=== PATIENT | female | born 1940 | race Caucasian/White ===

== ENCOUNTER 2016-06-22 10:21 | Outpatient (CLI) | payer OTHER ==
[~2016-06-22] VITALS: Ht 154.9 cm; Wt 63.2 kg
[~2016-06-22 10:21] MED LIST: AMLO-147 PO; OMEP40CA6 PO
[2016-06-22 10:37] VITALS: BP 188/86; PULSE 79; RESP 18; Ht 154.9 cm; Wt 63.2 kg
--- NOTE | 2016-06-22 11:06 | PN ---
Date/Time of Note Date/Time of Note DATE: 06/22/16 TIME: 10:59 Assessment/Plan Assessment/Plan Assessment/Plan [facility] Progress Note Date of Service: 06/22/16 Today's Impression & Plan: Doing well without any major changes to her symptoms. Would like to have the operation after coming back from her trip to [place] in August, which would be ok given her clinical picture. I explained the operation and consented the patient for it. The patient and family appeared to understand and agreed with the plans. With above assessment, I have recommended the followin. Abd hernia repair after patient returns back from her trip 2. Will set up quick pre-op visit and surgery to follow afterwards Thank you again for allowing us to participate in the care of this very pleasant lady and her wonderful family. If there are any questions, please feel free to call me at [phone]. TOTAL VISIT TIME: 45 minutes of which more than half was spent in [id number] discussion with the patient, discussions with her daughter, as well as coordination of care between multiple physicians and providers. Updated Clinical Summary The patient is a very pleasant 76-year-old lady well known to me from prior encounters in 2013 that were for recurrent colon cancer. She underwent a laparoscopic hand-assisted distal colectomy with splenectomy for idiopathic thrombocytopenic purpura on 11/25/2013 for a final pathology of a T2 N0 M0 with 0/32 lymph node positive disease who presented with bulge in the lower abdominal area concerning for an incisional hernia. S/p abd/pelvis CT showing large 9-10 cm abdominal wall hernia. S/p surveillance colonoscopy May 2016 with benign findings. Comorbidities: 1. History of colon cancer, initially diagnosed in [place] December 2011, status post resection followed by 4 cycles of 5-FU that were completed in July 2012. 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 Status post resection of descending colon in November 2012 followed by treatment with Xeloda. Status post above-mentioned resection in 2013, treated with modified FOLFOX therapy (6 ) x12 cycles with most recent CT negative as of November 2014. 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 2. Idiopathic thrombocytopenic purpura status post splenectomy during colon resection in 2013. 3. Hypertension. 4. Gastroesophageal reflux disease. 5. Prior left lower extremity deep venous thrombosis. 6. Probable history of uterine cancer. 7. Prior hysterectomy and bilateral salpingo-oophorectomy. 8. History of osteoporosis. 9. History of renal stones. 10. Status post 3 colon resections as above, 2011, 2012 and 2013. 11. Status post splenectomy during colon resection in 2013. 12. Status post hysterectomy and bilateral salpingo-oophorectomy. 13. Status post colonoscopy 06/06/16: One 3 mm polyp at hepatic flexure removed ; patent end-end colo-colonic anastomosis, healthy appearing; non-bleeding external hemorrhoids Subjective: No major events or complaints; no abd pain; no n/v/d; no sob or cp; + flatus; + BM and normal; + activity Objective: Vitals: See below Exam: GENERAL: On exam, the patient was sitting in a chair and appeared to be comfortable and in no acute distress. ABDOMEN: Soft, nontender and nondistended. There are no peritoneal signs or guarding. SKIN: Skin appears to be pink and feels warm to touch. NEUROLOGIC: Patient is awake, alert, and follows commands appropriately. Exam/Review of Systems Vital Signs Vitals Vital Signs Date Time Temp Pulse Resp B/P Pulse Ox O2 Delivery O2 Flow Rate FiO2 06/22/16 10:37 98.3 79 18 188/86 94 Room Air ELEAZAR JONES M.D. Jun 22, 2016 11:06
== END 2016-06-22 16:56 | disposition home or self-care (01) ==
LOC: HPC 10:21
PROVIDERS: ATTEND Transplant Surgery
DX: K46.9 Unspecified abdominal hernia without obstruction or gangrene (principal); Z15.89 Genetic susceptibility to other disease; K21.9 Gastro-esophageal reflux disease without esophagitis; Z86.718 Personal history of other venous thrombosis and embolism; Z90.710 Acquired absence of both cervix and uterus; Z90.722 Acquired absence of ovaries, bilateral; Z90.79 Acquired absence of other genital organ(s); M81.0 Age-related osteoporosis without current pathological fracture; Z87.442 Personal history of urinary calculi; Z90.81 Acquired absence of spleen; K64.4 Residual hemorrhoidal skin tags; D69.3 Immune thrombocytopenic purpura; Z85.038 Personal history of other malignant neoplasm of large intestine; Z90.49 Acquired absence of other specified parts of digestive tract; Z92.21 Personal history of antineoplastic chemotherapy
CPT/HCPCS: G0463

== ENCOUNTER → 2016-11-23 | Outpatient (CLI) | payer OTHER ==
[~2016-11-23] VITALS: Ht 154.9 cm; Wt 62.3 kg
[2016-11-23 10:07] VITALS: BP 186/79; PULSE 68; RESP 18; Ht 154.9 cm; Wt 62.3 kg
--- NOTE | 2016-11-23 11:02 | PN ---
Date/Time of Note Date/Time of Note DATE: 11/23/16 TIME: 10:42 Assessment/Plan Assessment/Plan Assessment/Plan [facility] Progress Note Date of Service: 11/23/16 Today's Impression & Plan: Doing well without any major changes to her symptoms and no issues during her trip to [place] in August. Ok to proceed with hernia repair. Given significant history of colon and other malignancies in the family, and the fact that her daughter had to undergo proctocolectomy (new information for me today), genetic counselling is indicated. I explained the operation and consented the patient for it. The patient and family appeared to understand and agreed with the plans. With above assessment, I have recommended the followin. CT abd/pelvis IV and oral contrast 2. Schedule for abdominal hernia repair 3. Referral to genetic counselor Thank you again for allowing us to participate in the care of this very pleasant lady and her wonderful family. If there are any questions, please feel free to call me at [phone]. TOTAL VISIT TIME: 45 minutes of which more than half was spent in [id number] discussion with the patient, discussions with her daughter, as well as coordination of care between multiple physicians and providers. Updated Clinical Summary The patient is a very pleasant 76-year-old lady well known to me from prior encounters in 2013 that were for recurrent colon cancer. She underwent a laparoscopic hand-assisted distal colectomy with splenectomy for idiopathic thrombocytopenic purpura on 11/25/2013 for a final pathology of a T2 N0 M0 with 0/32 lymph node positive disease who presented with bulge in the lower abdominal area concerning for an incisional hernia. S/p abd/pelvis CT showing large 9-10 cm abdominal wall hernia. S/p surveillance colonoscopy May 2016 with benign findings. Comorbidities: 1. History of colon cancer, initially diagnosed in [place] December 2011, status post resection followed by 4 cycles of 5-FU that were completed in July 2012. 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 Status post resection of descending colon in November 2012 followed by treatment with Xeloda. Status post above-mentioned resection in 2013, treated with modified FOLFOX therapy (6 ) x12 cycles with most recent CT negative as of November 2014. 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 2. Idiopathic thrombocytopenic purpura status post splenectomy during colon resection in 2013. 3. Hypertension. 4. Gastroesophageal reflux disease. 5. Prior left lower extremity deep venous thrombosis. 6. Probable history of uterine cancer. 7. Prior hysterectomy and bilateral salpingo-oophorectomy. 8. History of osteoporosis. 9. History of renal stones. 10. Status post 3 colon resections as above, 2011, 2012 and 2013. 11. Status post splenectomy during colon resection in 2013. 12. Status post hysterectomy and bilateral salpingo-oophorectomy. 13. Status post colonoscopy 06/06/16: One 3 mm polyp at hepatic flexure removed ; patent end-end colo-colonic anastomosis, healthy appearing; non-bleeding external hemorrhoids 14. Significant history of colon and other malignancies in the family; patient' s daughter had to undergo proctocolectomy (info came to light for me 11/23/16 during office visit) Subjective: No major events or complaints; no abd pain; no n/v/d; no sob or cp; + flatus; + BM and normal; + activity Objective: Vitals: See below Exam: GENERAL: On exam, the patient was sitting in a chair and appeared to be comfortable and in no acute distress. ABDOMEN: Soft, nontender and nondistended. There are no peritoneal signs or guarding. Lower midline 10-15 cm defect with bowel inside, not incarcerated and easily reduceable with normal overlying skin and non-tender. SKIN: Skin appears to be pink and feels warm to touch. NEUROLOGIC: Patient is awake, alert, and follows commands appropriately. Exam/Review of Systems Vital Signs Vitals Vital Signs Date Time Temp Pulse Resp B/P Pulse Ox O2 Delivery O2 Flow Rate FiO2 11/23/16 10:07 98.5 68 18 186/79 95 Room Air ELEAZAR JONES M.D. Nov 23, 2016 10:52
== END | disposition home or self-care (01) ==
LOC: HPC 09:57
PROVIDERS: ATTEND Transplant Surgery
DX: R10.30 Lower abdominal pain, unspecified (principal); D69.3 Immune thrombocytopenic purpura; I10 Essential (primary) hypertension; K21.9 Gastro-esophageal reflux disease without esophagitis; M81.0 Age-related osteoporosis without current pathological fracture; Z85.038 Personal history of other malignant neoplasm of large intestine; Z86.718 Personal history of other venous thrombosis and embolism; Z90.710 Acquired absence of both cervix and uterus; Z87.442 Personal history of urinary calculi; Z90.722 Acquired absence of ovaries, bilateral

== ENCOUNTER 2016-12-14 10:37 | Outpatient (CLI) | payer OTHER ==
[~2016-12-14] VITALS: Ht 154.9 cm; Wt 62.3 kg
[2016-12-14 10:52] VITALS: Ht 154.9 cm; Wt 62.3 kg
[2016-12-14 10:53] VITALS: BP 181/84; PULSE 74; RESP 18
--- NOTE | 2016-12-14 11:21 | PN ---
Date/Time of Note Date/Time of Note DATE: 12/14/16 TIME: 11:13 Assessment/Plan Assessment/Plan Assessment/Plan [facility] Progress Note Date of Service: 12/14/16 Today's Impression & Plan: Overall stable and doing well without any major changes to her symptoms since last visit. CT scan dated 12/05/2016 showed presence of previously known large midline infraumbilical incisional hernia containing small bowel and no new findings. No contraindications for surgical repair as desired by patient and family. Ok to proceed with hernia repair with mesh. I again explained the operation and consented the patient for it. I also specifically reviewed the higher than normal risk of hernia recurrence given the fact that this would be the fourth time this area is accessed surgically. The patient and family appeared to understand and agreed with the plans. Please note that genetic counseling has not occurred; but this is not necessary to perform this operation. I again stressed the importance of patient and family having formal genetic counseling with the patient and her son. They appeared to understand and agreed. With above assessment, I have recommended the followin. Preoperative history and physical 2. Schedule for abdominal hernia repair 2. Referral to genetic counselor Thank you again for allowing us to participate in the care of this very pleasant lady and her wonderful family. If there are any questions, please feel free to call me at [phone]. Nature of presenting problem: Moderate risk Complexity of decision making: Moderate complexity Updated Clinical Summary The patient is a very pleasant 76-year-old lady well known to me from prior encounters in 2013 that were for recurrent colon cancer. She underwent a laparoscopic hand-assisted distal colectomy with splenectomy for idiopathic thrombocytopenic purpura on 11/25/2013 for a final pathology of a T2 N0 M0 with 0/32 lymph node positive disease who presented with bulge in the lower abdominal area concerning for an incisional hernia. S/p abd/pelvis CT showing large 9-10 cm abdominal wall hernia. S/p surveillance colonoscopy May [address] scan dated 12/05/2016 showed presence of previously known large midline infraumbilical incisional hernia containing small bowel and no new findings. Comorbidities: 1. History of colon cancer, initially diagnosed in [place] December 2011, status post resection followed by 4 cycles of 5-FU that were completed in July 2012. 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 Status post resection of descending colon in November 2012 followed by treatment with Xeloda. Status post above-mentioned resection in 2013, treated with modified FOLFOX therapy (6 ) x12 cycles with most recent CT negative as of November 2014. 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 CT scan dated 12/05/2016 showed presence of previously known large midline infraumbilical incisional hernia containing small bowel and no new findings. 2. Idiopathic thrombocytopenic purpura status post splenectomy during colon resection in 2013. 3. Hypertension. 4. Gastroesophageal reflux disease. 5. Prior left lower extremity deep venous thrombosis. 6. Probable history of uterine cancer. 7. Prior hysterectomy and bilateral salpingo-oophorectomy. 8. History of osteoporosis. 9. History of renal stones. 10. Status post 3 colon resections as above, 2011, 2012 and 2013. 11. Status post splenectomy during colon resection in 2013. 12. Status post hysterectomy and bilateral salpingo-oophorectomy. 13. Status post colonoscopy 06/06/16: One 3 mm polyp at hepatic flexure removed ; patent end-end colo-colonic anastomosis, healthy appearing; non-bleeding external hemorrhoids 14. Significant history of colon and other malignancies in the family; patient' s daughter had to undergo proctocolectomy (info came to light for me 11/23/16 during office visit) Subjective: No major events or complaints; no abd pain; no n/v/d; no sob or cp; + flatus; + BM and normal; + activity Objective: Vitals: See below Exam: GENERAL: On exam, the patient was sitting in a chair and appeared to be comfortable and in no acute distress. ABDOMEN: Soft, nontender and nondistended. There are no peritoneal signs or guarding. Lower midline 10-15 cm defect with bowel inside, not incarcerated and easily reduceable with normal overlying skin and non-tender. SKIN: Skin appears to be pink and feels warm to touch. NEUROLOGIC: Patient is awake, alert, and follows commands appropriately. Exam/Review of Systems Vital Signs Vitals Vital Signs Date Time Temp Pulse Resp B/P Pulse Ox O2 Delivery O2 Flow Rate FiO2 12/14/16 10:53 98.3 74 18 181/84 94 Room Air ELEAZAR JONES M.D. Dec 14, 2016 11:21
== END 2016-12-14 16:52 | disposition home or self-care (01) ==
LOC: HPC 10:37
PROVIDERS: ATTEND Transplant Surgery
DX: K43.9 Ventral hernia without obstruction or gangrene (principal); I10 Essential (primary) hypertension; D69.3 Immune thrombocytopenic purpura; K21.9 Gastro-esophageal reflux disease without esophagitis; Z85.038 Personal history of other malignant neoplasm of large intestine; Z90.710 Acquired absence of both cervix and uterus; Z86.718 Personal history of other venous thrombosis and embolism; Z87.442 Personal history of urinary calculi; Z90.81 Acquired absence of spleen
CPT/HCPCS: G0463

== ENCOUNTER 2017-01-05 08:01 | Inpatient (IN) | payer OTHER ==
[~2017-01-05] VITALS: Ht 152.4 cm; Wt 62.0 kg
[2017-01-05] VITALS (28 sets, daily range): BP systolic 116–189; BP diastolic 59–87; PULSE 74–122; RESP 17–22
[2017-01-05] MEDS: D5W-0.45 NACL + KCL 20 MEQ 1,000 ML IV SCH ×4 (06:00→20:12)
[~2017-01-05 08:01] MED LIST changes: +CEFAZOLIN 2 GM/50 ML (PMX) 50 ML IVPB SCH
[2017-01-05] MEDS ORDERED: BUPIVACAINE 0.5%/EPI (SDV) 30 ML INJ ONE (08:22)
[2017-01-05] MEDS ORDERED: AMLO5TAB4 PO (08:27)
[2017-01-05] MEDS ORDERED: PROCHLORPERAZINE 10 MG INJ IV PRN (08:30)
[2017-01-05] MEDS ORDERED: FENTAnyl 50 MCG/ML VIAL IV PRN (08:30)
[2017-01-05] MEDS ORDERED: oxyCODONE 5 MG TAB PO PRN (08:30)
[2017-01-05] MEDS ORDERED: MEPERIDINE 25 MG INJ IV PRN (08:30)
[2017-01-05] MEDS ORDERED: ONDANSETRON 4 MG INJ IV PRN (08:30)
[2017-01-05] MEDS ORDERED: LABETALOL HCL 20MG INJ IV PRN (08:30)
[2017-01-05] MEDS ORDERED: HYDROmorphONE (0.2 MG/ML) 10ML SYG IV PRN (08:30)
[2017-01-05] MEDS ORDERED: EPHEDrine SULFATE 50 MG/5 ML SYG IV PRN (08:30)
[2017-01-05] MEDS ORDERED: hydrALAzine 20 MG INJ IV PRN (08:30)
[2017-01-05] MEDS ORDERED: DIPHENHYDRAMINE 50 MG INJ IV PRN (08:30)
--- NOTE | 2017-01-05 09:01 | HPN ---
Date/Time of Note Date/Time of Note DATE: 01/05/17 TIME: 09:01 Interval H&P Admission Note Pt. seen H&P reviewed: No system changes Pt. seen H&P reviewed. No system changes (I attest that I have seen and examined the patient and reviewed the operation in detail, as well as its risks , benefits and alternatives of the operation). I attest that I have seen and examined the patient and reviewed in detail the operation, and its associated risks, benefits and alternative. I have answered all the patient's questions to the best of my ability and the patient wishes to proceed. Please refer to rest of electronic medical record for additional updates. ELEAZAR JONES M.D. Jan 05, 2017 09:01
[2017-01-05] MEDS ORDERED: FENTAnyl 50 MCG/ML VIAL ONE ×2 (09:18→13:30)
[2017-01-05] MEDS ORDERED: LIDOCAINE 2% (SDV) 5 ML INJ ONE (09:18)
[2017-01-05] MEDS ORDERED: MIDAZOLAM 1 MG/ML 2 ML INJ ONE (09:18)
[2017-01-05] MEDS ORDERED: SUCCINYLCHOLINE CHLORIDE 100 MG/5 ML SYG IV ONE (09:18)
[2017-01-05] MEDS ORDERED: PROPOFOL 20 ML ONE (09:18)
[2017-01-05] MEDS ORDERED: EPHEDrine SULFATE 50 MG/5 ML SYG ONE (09:21)
[2017-01-05] MEDS ORDERED: PHENYLephrine (100 MCG/ML) 5ML SYG ONE (09:21)
[2017-01-05] MEDS ORDERED: PHYTONADIONE 2 MG in DEXTROSE 5% 50 ML IVPB ONE (09:30)
[2017-01-05] MEDS ORDERED: ROCURONIUM 50 MG INJ ONE ×2 (09:37→12:50)
[2017-01-05] MEDS ORDERED: ONDANSETRON 4 MG INJ ONE (09:37)
[2017-01-05] MEDS ORDERED: CEFAZOLIN 1 GM INJ ONE (09:37)
[2017-01-05] MEDS ORDERED: METOCLOPRAMIDE 10 MG INJ ONE (09:37)
[2017-01-05] MEDS ORDERED: HYDROmorphONE 2 MG/ML SYG ONE (10:03)
[2017-01-05] MEDS ORDERED: ACETAMINOPHEN 1000MG/100ML IV 100 ML ONE (10:05)
[2017-01-05] MEDS ORDERED: ROPIVACAINE 0.2% 20 ML VIAL ONE (10:07)
[2017-01-05] MEDS ORDERED: SUGAMMADEX SODIUM 200 MG/2 ML VIAL IV ONE (12:05)
--- NOTE | 2017-01-05 15:29 | SIPON ---
Date/Time of Note Date/Time of Note DATE: 01/05/17 TIME: 15:27 Operative Report Preoperative Diagnosis ventral incisional hernia (20x7) Postoperative Diagnosis ventral incisional hernia (20x7) Operation/Procedure Performed 1. Mesh repair ventral incisional hernia (20x7) with mesh with retrorectus dissection on both sides and inlay mesh between abdominal wall layers 2. Abdominoplasty Surgeon see signature line bakery assistant none Anesthesia: general Estimated blood loss: 10 - 50 ml's Transfusion Required none Specimen 1. Hernia sac 2. abdominoplasty specimen Grafts/Implants Mesh Complications none ELEAZAR JONES M.D. Jan 05, 2017 15:29
--- NOTE | 2017-01-05 15:29 | SIPON ---
Date/Time of Note Date/Time of Note DATE: 01/05/17 TIME: 15:27 Operative Report Preoperative Diagnosis ventral incisional hernia (20x7) Postoperative Diagnosis ventral incisional hernia (20x7) Operation/Procedure Performed 1. Mesh repair ventral incisional hernia (20x7) with mesh with retrorectus dissection on both sides and inlay mesh between abdominal wall layers 2. Abdominoplasty Surgeon see signature line certified surgical assistant none Anesthesia: general Estimated blood loss: 10 - 50 ml's Transfusion Required none Specimen 1. Hernia sac 2. abdominoplasty specimen Grafts/Implants Mesh Complications none ELEAZAR JONES M.D. Jan 05, 2017 15:29
--- NOTE | 2017-01-05 15:29 | SIPON ---
Date/Time of Note Date/Time of Note DATE: 01/05/17 TIME: 15:27 Operative Report Preoperative Diagnosis ventral incisional hernia (20x7) Postoperative Diagnosis ventral incisional hernia (20x7) Operation/Procedure Performed 1. Mesh repair ventral incisional hernia (20x7) with mesh with retrorectus dissection on both sides and inlay mesh between abdominal wall layers 2. Abdominoplasty Surgeon see signature line curriculum assistant principal none Anesthesia: general Estimated blood loss: 10 - 50 ml's Transfusion Required none Specimen 1. Hernia sac 2. abdominoplasty specimen Grafts/Implants Mesh Complications none ELEAZAR JONES M.D. Jan 05, 2017 15:29
[2017-01-05] MEDS ORDERED: HYDROmorphONE 0.5 MG/0.5 ML SYG IV PRN (15:30)
[2017-01-05] MEDS ORDERED: HYDROmorphONE 0.2 MG/ML PCA IV SCH (15:30)
[2017-01-05] MEDS ORDERED: HYDROCODONE/APAP (5/325) TAB PO PRN ×2 (15:30)
[2017-01-05] MEDS ORDERED: NA PHOSPHATE/BIPHOS 133 ML ENEMA PR PRN (15:30)
[2017-01-05] MEDS ORDERED: DOCUSATE SODIUM 100 MG CAP PO PRN (15:30)
[2017-01-05] MEDS ORDERED: BISACODYL 10 MG SUPP PR PRN (15:30)
[2017-01-05] MEDS ORDERED: HYDROmorphONE 1 MG/ML SYG IV PRN (15:30)
[2017-01-05] MEDS ORDERED: HYDROmorphONE 0.2 MG/ML PCA ONE (15:47)
--- NOTE | 2017-01-05 18:07 | OPR ---
Date/Time of Note Date/Time of Note DATE: 01/05/17 TIME: 18:06 Operative Report Preoperative Diagnosis n Postoperative Diagnosis n Surgeon see signature line Manager Embalmer Funeral Director n Anesthesia Type: other Estimated Blood Loss: other Transfusion none Specimen n Grafts/Implants see op note Complications none Procedure Description [facility] IN[facility]IENT [facility]PER[facility]IVE NOTE PLACE OF SERVICE: [facility] DATE OF SURGERY: 01/05/2017 PREOPERATIVE DIAGNOSIS: 1. Ventral incisional hernia 2. History of colon cancer, initially diagnosed in [place] December 2011, status post resection followed by 4 cycles of 5-FU that were completed in July 2012. 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 Status post resection of descending colon in November 2012 followed by treatment with Xeloda. Status post above-mentioned resection in 2013, treated with modified FOLFOX therapy (6 ) x12 cycles with most recent CT negative as of November 2014. 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 CT scan dated 12/05/2016 showed presence of previously known large midline infraumbilical incisional hernia containing small bowel and no new findings. 3. Idiopathic thrombocytopenic purpura status post splenectomy during colon resection in 2013. 4. Gastroesophageal reflux disease. 5. Prior left lower extremity deep venous thrombosis. 6. Probable history of uterine cancer. 7. Prior hysterectomy and bilateral salpingo-oophorectomy. 8. History of osteoporosis. 9. History of renal stones. 10. Status post 3 colon resections as above, 2011, 2012 and 2013. 11. Status post splenectomy during colon resection in 2013. 12. Status post hysterectomy and bilateral salpingo-oophorectomy. 13. Status post colonoscopy 06/06/16: One 3 mm polyp at hepatic flexure removed ; patent end-end colo-colonic anastomosis, healthy appearing; non-bleeding external hemorrhoids 14. Significant history of colon and other malignancies in the family; patient' s daughter had to undergo proctocolectomy (info came to light for tx 11/23/16 during office visit) 15. Hypertension. POSTOPERATIVE DIAGNOSIS: 1. Ventral incisional hernia 2. History of colon cancer, initially diagnosed in [place] December 2011, status post resection followed by 4 cycles of 5-FU that were completed in July 2012. 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 Status post resection of descending colon in November 2012 followed by treatment with Xeloda. Status post above-mentioned resection in 2013, treated with modified FOLFOX therapy (6 ) x12 cycles with most recent CT negative as of November 2014. 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 CT scan dated 12/05/2016 showed presence of previously known large midline infraumbilical incisional hernia containing small bowel and no new findings. 3. Idiopathic thrombocytopenic purpura status post splenectomy during colon resection in 2013. 4. Gastroesophageal reflux disease. 5. Prior left lower extremity deep venous thrombosis. 6. Probable history of uterine cancer. 7. Prior hysterectomy and bilateral salpingo-oophorectomy. 8. History of osteoporosis. 9. History of renal stones. 10. Status post 3 colon resections as above, 2011, 2012 and 2013. 11. Status post splenectomy during colon resection in 2013. 12. Status post hysterectomy and bilateral salpingo-oophorectomy. 13. Status post colonoscopy 06/06/16: One 3 mm polyp at hepatic flexure removed ; patent end-end colo-colonic anastomosis, healthy appearing; non-bleeding external hemorrhoids 14. Significant history of colon and other malignancies in the family; patient' s daughter had to undergo proctocolectomy (info came to light for me 11/23/16 during office visit) 15. Hypertension. OPERATION: 1. Complex repair of ventral incisional hernia with preperitoneal mesh ( composite Ventralight ST 20.3 cm x 25.4cm cut to size; also used Acell 6 layer 7 x 5 cm mesh cut to size to reapproximate the upper midline posterior rectus sheath over exposed bowel) 2. Right rectus myocutaneous flap (CPT 31581) 3. Left rectus myocutaneous flap (CPT 66196) 4. Implantation of mesh (CPT 72000) 5. Lysis of adhesions (60 mi 6. Nutes) 6. Therapeutic injection of subcutaneous Marcaine (CPT 52813) SURGEON: Eleazar Jones M.D. ESCORT CAR DRIVER: None ANESTHESIA: General endotracheal tube anesthesia ANESTHESIOLOGIST: Alondra Bennett M.D. BRIEF SUMMARY: An otherwise uncomplicated but challenging and complex ventral incisional hernia repair was performed with findings of defect of approximately 20 cm x 7 cm repaired with mesh. Updated Clinical Summary The patient is a very pleasant 76-year-old lady well known to me from prior encounters in 2013 that were for recurrent colon cancer. She underwent a laparoscopic hand-assisted distal colectomy with splenectomy for idiopathic thrombocytopenic purpura on 11/25/2013 for a final pathology of a T2 N0 M0 with 0/32 lymph node positive disease who presented with bulge in the lower abdominal area concerning for an incisional hernia. S/p abd/pelvis CT showing large 9-10 cm abdominal wall hernia. S/p surveillance colonoscopy May [address] scan dated 12/05/2016 showed presence of previously known large midline infraumbilical incisional hernia containing small bowel and no new findings. Comorbidities: 1. History of colon cancer, initially diagnosed in [place] December 2011, status post resection followed by 4 cycles of 5-FU that were completed in July 2012. 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 Status post resection of descending colon in November 2012 followed by treatment with Xeloda. Status post above-mentioned resection in 2013, treated with modified FOLFOX therapy (6 ) x12 cycles with most recent CT negative as of November 2014. 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 CT scan dated 12/05/2016 showed presence of previously known large midline infraumbilical incisional hernia containing small bowel and no new findings. 2. Idiopathic thrombocytopenic purpura status post splenectomy during colon resection in 2013. 3. Hypertension. 4. Gastroesophageal reflux disease. 5. Prior left lower extremity deep venous thrombosis. 6. Probable history of uterine cancer. 7. Prior hysterectomy and bilateral salpingo-oophorectomy. 8. History of osteoporosis. 9. History of renal stones. 10. Status post 3 colon resections as above, 2011, 2012 and 2013. 11. Status post splenectomy during colon resection in 2013. 12. Status post hysterectomy and bilateral salpingo-oophorectomy. 13. Status post colonoscopy 06/06/16: One 3 mm polyp at hepatic flexure removed ; patent end-end colo-colonic anastomosis, healthy appearing; non-bleeding external hemorrhoids 14. Significant history of colon and other malignancies in the family; patient' s daughter had to undergo proctocolectomy (info came to light for me 11/23/16 during office visit) BRIEF HISTORY: The patient is a very pleasant 76-year-old lady with above- mentioned history whom we were kindly asked consult regarding surgical management of her recurrent ventral incisional hernia. Note that I have known the patient since 2013 and had performed above-mentioned colectomy and splenectomy in 2014. Patient had been having symptomatic incisional ventral hernia for a long time and at this point wished surgical repair. I met with the patient and family and counseled them regarding the possible options of treatment, and I strongly suggested a open ventral incisional hernia repair, most likely with mesh. We reviewed the operation in detail as well as the risks , benefits, alternatives, and expected outcomes of this operation. After careful consideration of all the risks, benefits, and alternatives, the patient and family appeared to understand those risks and wished to proceed with surgery. For a detailed report of my consultation with patient and family, please refer to my separate consultation note. STATEMENT OF THE INFORMED CONSENT: The patient and family appeared to understand the risks of the operation to include, but not be limited to risk of postoperative pain and scar tissue, possible infection or bleeding requiring other interventions such as opening the wound, placement of drainage catheters, or other operative interventions; possible injury to surrounding to structures including bowel, bladder, bile duct, or blood vessels, or solid organs such as liver, kidney, or pancreas requiring other interventions or procedures; possible leakage of bowel from anastomotic sites or suture lines more specifically regarding the mesh, mesh infection causing significant increase in morbidity and mortality and requiring multiple interventions including but not limited to, placement of drainage catheters, imaging studies, as well as operative interventions; possible other source of sepsis such as urinary tract infections or pneumonias, or other sources of potentially life threatening problems such as deep venous thrombus formation causing pulmonary embolism, myocardial arrhythmias and infarctions, and even . We also specifically reviewed the higher than normal recurrence rate of hernia given the complexity of the hernia that we saw on the preoperative images. After careful consideration of all their options, the patient and family appeared to understand and wished to proceed with surgery. DESCRIPTION OF PROCEDURE: After obtaining informed consent, the patient was brought into the operating room and was placed in a normal supine position, where successful general endotracheal tube anesthesia was performed. Intravenous access was already in place and intravenous antimicrobials had been appropriately chosen and dosed prior to the operation. The patient's abdominal skin was prepped and draped from the nipple line down to the level of the upper thighs in the usual sterile fashion. We then called a surgical time-out where the patient's identification, date of , nature of the operation, allergies , presence of intravenous antimicrobials, presence of needed equipment, and any other concerns were reviewed and agreed upon by all members of the operating room team. We then started the operation by placing a skin incision along the previous midline laparotomy scar using scalpel to go through the skin and then cautery to go through the subcutaneous fat. The subcutaneous fat was very thin in the lower midline and there was bowel right underneath it. There was no injury to underlying bowel. We entered the hernia sac easily and then extended our incision eventually to the full extent of the previous midline incision (see below). Initially, the incision was approximately 20 cm in length. We could see that there was a large defect corresponding to the preoperative images and some loss of domain from the long-standing presence of this hernia. Hernia also had at least 2 smaller sacs in the most caudal portion of the subcutaneous fat which we also saw on the preoperative images. Underlying bowel appeared to be viable. We then started extensive adhesio lysis ( approximately 60 minutes prior to myocutaneous flap development and overall 2-3 hours extra in time spent due to extent of the size of this hernia) and took down the sac from the subcutaneous fat down to the edge of fascia and then removed the excess sac and send it to pathology eventually for permanent sections. We then started developing the right myocutaneous flap by taking the posterior rectus sheath and it from the overlying muscle using combination of judicious cautery as well as blunt dissection. We ensured preservation of the vessels that were on the lateral edge of the rectus sheath going into the rectus muscle. We continue to development of the myocutaneous flap up cephalad until we reached the apex of our incision which was at the umbilicus. We could feel that the defect extended further cephalad including the umbilical area and therefore we extended our incision using scalpel and then cautery to accommodate the large defect size that we could feel. There was a small bridge of preserved fascia above the umbilicus and then another 2 cm fascial defect cephalad to this area was found. After careful consideration of all the options , I decided to connect this new defect site to the larger defect site by going through the bridge of fascia that was present (only about 8 mm in total length) using cautery. With this maneuver, we had achieved complete exposure to the full extent of the hernia defect site. This is also the reason why the incision was extended to the full extent of the previous scar. We then switched sides and I developed the myocutaneous flap on the left in a similar fashion. Once we developed enough space to be able to fit the mesh, I started approximating the posterior sheet which was essentially peritoneum below the arcuate line using running 3-0 Vicryl suture cephalad. We also attempted to bring the 2 edges of the posterior rectus sheath from the most superior aspect of the defect site together using another 3-0 Vicryl suture. Due to the loss of domain, this was not possible given the distance between the 2 edges and the tension that would essentially because of ribs in the posterior sheet. I did further dissection on both sides and also did undermining of the subcutaneous fat over the anterior rectus sheath in an attempt to free up more abdominal wall fascia in order to attempt a tension-free anastomosis. We were able to reapproximate the posterior sheet with a central defect which we covered using a 6 layer Acell sutured onto the edges of the posterior sheet with 3-0 PDS suture in a running fashion along the edges on the inside and then interrupted 3-0 PDS suture tacking the outer edges onto the posterior sheet for reinforcement. Using this technique, we were able to completely cover the bowel away from the surface of the composite mesh that we were using for layer closure. At this point I washed the cavity with copious amounts of normal saline and ensured adequate hemostasis prior to positioning a Ventralight ST 20.3 cm x 25.4cm cut to size (only on the width and not on the length side) into the cavity. Mesh laid nicely and we secured the edges superiorly and inferiorly as well as on the sides with 3-0 PDS suture. Mesh laid nicely and covered the entire defect site with at least 2-3 cm on each apex (cephalad and caudad) on the posterior sheet and at least 5 or 6 cm on the sides with the anterior sheet closed. Once we ensured adequate placement of the mesh, I reapproximated the anterior sheath edges using interrupted #1 PDS suture in a [id number] fashion. We were able to completely reapproximate the anterior sheath minus a 2 cm area near the apex of the wound on the cephalad side. The 2 edges of the anterior sheath would not come together without tension. For this reason, I used a running 3-0 PDS suture as well as interrupted #1 PDS sutures in a circular fashion to approximate the anterior sheath onto the anterior surface of the mesh. This completed the closure of the anterior sheet over the mesh and the repair appeared to be secure with no tension. We then ensured adequate hemostasis prior to placement of a 7 Cambodian round Devante-Liu drain through a separate stab incision in the left lower quadrant and securing the drain onto the skin using 2-0 nylon suture and laying the tail of the drain along the inferior lateral and superior edges of the wound and then using 3-0 Vicryl suture to bring the inferior edge of the Makenzie's fascia to try to eliminate the potential space. Because of excess abdominal skin, we ended up using scalpel to remove this excess skin and send the specimen as an abdominoplasty specimen to pathology for permanent sections on the caudal portion of the incision (approximately 15 cm of skin removed on each side). We then washed the wounds with copious amounts of normal saline, did an umbilical plasty in order to secure the base of the umbilicus onto the underlying tissue and then reapproximated the skin using skin stapler. Light dressing was then applied. At the end of the operation, both the sponge count and needle count were reportedly correct x2. The patient tolerated the procedure without any reported complications. ESTIMATED BLOOD LOSS: 20 mL BLOOD OR BLOOD PRODUCT TRANSFUSIONS: None to my knowledge. SPECIMENS: 1. Ventral incisional hernia sac 2. Abdominoplasty specimen COMPLICATIONS: None. DISPOSITION: Recovery area. GRAFTS: Composite Ventralight ST 20.3 cm x 25.4cm cut to size; also used Acell 6 layer 7 x 5 cm mesh cut to size to reapproximate the upper midline posterior rectus sheath over exposed bowel Disclaimers: 1. Inadvertent spelling and grammatical errors are likely due to electronic health record (EHR)/dictation software used and do not reflect on the quality of delivered patient care. 2. The electronic timestamp recorded on this note does not necessarily reflect the actual date and time of the visit or the service. 3. Portions of this note may have been created through electronic templates and computer algorithms that might bring in information either from the system or from other physicians and providers. Please note that such information may or may not contain errors, the occurrence of which are outside of my control. In general (but not always) this happens either in the beginning or at the end of the note. The portion of the note that I have created are generally done in 1 continuous block of text, flanked at the beginning and at the end by " ", and entered into one field in the EHR. 4. There may be other unanticipated errors in the note that are outside of my control. I can only attest to the portions of the note that I have created. ELEAZAR JONES M.D. Jan 05, 2017 18:07
[2017-01-06] MEDS: D5W-0.45 NACL + KCL 20 MEQ 1,000 ML IV SCH ×2 (01:21→07:18)
--- NOTE | 2017-01-06 04:51 | CONS ---
Date/Time of Note Date/Time of Note DATE: 01/06/17 TIME: 04:43 Assessment/Plan Assessment/Plan Additional Assessment/Plan ASSESSMENT 76-year-old female with hx of HTN, colon cancer s/p surgery and chemo with recurrent ventral incisional hernia, hx of ITP s/p splenomegaly who is admitted s/p repair of ventral incisional hernia and lysis of admission(01/05/17). PLAN pain mgmt advance diet as tolerated Hold home BP meds with PRN anti-hypertensives for now. DVT ppx per surgery check am lab Consultation Date/Type/Reason Admit Date/Time Jan 05, 2017 at 08:01 Hx of Present Illness This is a 76-year-old female with hx of HTN, colon cancer s/p surgery and chemo with recurrent ventral incisional hernia, hx of ITP s/p splenomegaly who is admitted s/p repair of ventral incisional hernia and lysis of admission(01/05/17 ). Consult is placed for medical mgmt. Currently, pt denies CP, SOB, fever/ chills, N/V. She does have intermittent post-op abd pain. Past Medical History Medical History: hypertension, other (colon ca, ITP) Past Surgical History Past Surgical Hx: bowel resection Social History Alcohol Use: none Smoking Status: Never smoker Drug Use: none Exam/Review of Systems Vital Signs Vitals Vital Signs Date Time Temp Pulse Resp B/P Pulse Ox O2 Delivery O2 Flow Rate FiO2 01/06/17 01:00 17 01/05/17 23:57 98.9 118/59 93 01/05/17 23:00 3.0 01/05/17 20:40 Nasal Cannula 01/05/17 19:51 86 Intake and Output 01/05/17 01/05/17 01/06/17 15:00 23:00 07:00 Intake Total 1150 ml Output Total 555 ml 75 ml Balance 595 ml -75 ml Exam Constitutional: other (sleepy, but arousable. no acute distress) Head: atraumatic, normocephalic Eyes: PERRL Respiratory: clear to auscultation, normal air movement Cardiovascular: nl pulses, regular rate and rhythm Gastrointestinal: soft, surgical scars, tender Extremities: normal pulses Results Result Diagram: 01/05/17 0839 Results 24 hrs Laboratory Tests Test 01/05/17 08:39 Prothrombin Time 13.7 Prothrombin Time Ratio 1.1 INR International Normalized Ratio 1.05 Sodium Level 146 H Potassium Level 4.1 Chloride Level 105 Carbon Dioxide Level 29 Anion Gap 16 Blood Urea Nitrogen 17 Creatinine 0.66 Glucose Level 101 Calcium Level 9.1 Medications Medications Current Medications Potassium Chloride/Dextrose/ Sod Cl (D5-1/2ns + KCl 20 Meq) 1,000 ml @ 100 mls/ hr Q10H IV Last administered on 01/05/17 20:12; Admin Dose 100 MLS/HR; Start 01/05/17 at 15:21 Acetaminophen/ Hydrocodone Bitart ([place]lee (5/325)) 1 tab Q4H PRN PO PAIN LEVEL 4 -7; Start 01/05/17 at 15:30; Status Future Hold Acetaminophen/ Hydrocodone Bitart (Oklee (5/325)) 2 tab Q4H PRN PO PAIN LEVEL 7 -10; Start 01/05/17 at 15:30; Status Future Hold Hydromorphone HCl (Dilaudid) 0.5 mg Q2H PRN IV PAIN; Start 01/05/17 at 15:30 Hydromorphone HCl (Dilaudid) 1 mg Q2H PRN IV PAIN; Start 01/05/17 at 15:30 Docusate Sodium (Colace) 100 mg BID PRN PO CONSTIPATION; Start 01/05/17 at 15: 30 Bisacodyl (Dulcolax Supp) 10 mg BID PRN [place] CONSTIPATION; Start 01/05/17 at 15: 30 Sodium Biphosphate/ Sodium Phosphate (Fleet Enema) 133 ml BID PRN [place] CONSTIPATION; Start 01/05/17 at 15:30 Famotidine (Pepcid Iv) 20 mg DAILY IV ; Start 01/06/17 at 09:00 Enoxaparin Sodium (Lovenox) 40 mg DAILY SC ; Start 01/06/17 at 09:00 Hydromorphone HCl (Dilaudid HEALTH AND SAFETY INSPECTOR) 0 MG/HR CONTINUOUS RATE .1... Q4PCA IV Last administered on 01/05/17 15:51; Admin Dose 6 MG; Start 01/05/17 at 15:30 Hydralazine HCl (Apresoline) 10 mg Q4H PRN IV SBP > 160; Start 01/06/17 at 05: 00 JC NEWBERRY MD Jan 06, 2017 04:51
--- NOTE | 2017-01-06 04:51 | CONS ---
Date/Time of Note Date/Time of Note DATE: 01/06/17 TIME: 04:43 Assessment/Plan Assessment/Plan Additional Assessment/Plan ASSESSMENT 76-year-old female with hx of HTN, colon cancer s/p surgery and chemo with recurrent ventral incisional hernia, hx of ITP s/p splenomegaly who is admitted s/p repair of ventral incisional hernia and lysis of admission(01/05/17). PLAN pain mgmt advance diet as tolerated Hold home BP meds with PRN anti-hypertensives for now. DVT ppx per surgery check am lab Consultation Date/Type/Reason Admit Date/Time Jan 05, 2017 at 08:01 Hx of Present Illness This is a 76-year-old female with hx of HTN, colon cancer s/p surgery and chemo with recurrent ventral incisional hernia, hx of ITP s/p splenomegaly who is admitted s/p repair of ventral incisional hernia and lysis of admission(01/05/17 ). Consult is placed for medical mgmt. Currently, pt denies CP, SOB, fever/ chills, N/V. She does have intermittent post-op abd pain. Past Medical History Medical History: hypertension, other (colon ca, ITP) Past Surgical History Past Surgical Hx: bowel resection Social History Alcohol Use: none Smoking Status: Never smoker Drug Use: none Exam/Review of Systems Vital Signs Vitals Vital Signs Date Time Temp Pulse Resp B/P Pulse Ox O2 Delivery O2 Flow Rate FiO2 01/06/17 01:00 17 01/05/17 23:57 98.9 118/59 93 01/05/17 23:00 3.0 01/05/17 20:40 Nasal Cannula 01/05/17 19:51 86 Intake and Output 01/05/17 01/05/17 01/06/17 15:00 23:00 07:00 Intake Total 1150 ml Output Total 555 ml 75 ml Balance 595 ml -75 ml Exam Constitutional: other (sleepy, but arousable. no acute distress) Head: atraumatic, normocephalic Eyes: PERRL Respiratory: clear to auscultation, normal air movement Cardiovascular: nl pulses, regular rate and rhythm Gastrointestinal: soft, surgical scars, tender Extremities: normal pulses Results Result Diagram: 01/05/17 0839 Results 24 hrs Laboratory Tests Test 01/05/17 08:39 Prothrombin Time 13.7 Prothrombin Time Ratio 1.1 INR International Normalized Ratio 1.05 Sodium Level 146 H Potassium Level 4.1 Chloride Level 105 Carbon Dioxide Level 29 Anion Gap 16 Blood Urea Nitrogen 17 Creatinine 0.66 Glucose Level 101 Calcium Level 9.1 Medications Medications Current Medications Potassium Chloride/Dextrose/ Sod Cl (D5-1/2ns + KCl 20 Meq) 1,000 ml @ 100 mls/ hr Q10H IV Last administered on 01/05/17 20:12; Admin Dose 100 MLS/HR; Start 01/05/17 at 15:21 Acetaminophen/ Hydrocodone Bitart ([place] (5/325)) 1 tab Q4H PRN PO PAIN LEVEL 4 -7; Start 01/05/17 at 15:30; Status Future Hold Acetaminophen/ Hydrocodone Bitart ([place]flow (5/325)) 2 tab Q4H PRN PO PAIN LEVEL 7 -10; Start 01/05/17 at 15:30; Status Future Hold Hydromorphone HCl (Dilaudid) 0.5 mg Q2H PRN IV PAIN; Start 01/05/17 at 15:30 Hydromorphone HCl (Dilaudid) 1 mg Q2H PRN IV PAIN; Start 01/05/17 at 15:30 Docusate Sodium (Colace) 100 mg BID PRN PO CONSTIPATION; Start 01/05/17 at 15: 30 Bisacodyl (Dulcolax Supp) 10 mg BID PRN [place] CONSTIPATION; Start 01/05/17 at 15: 30 Sodium Biphosphate/ Sodium Phosphate (Fleet Enema) 133 ml BID PRN [place] CONSTIPATION; Start 01/05/17 at 15:30 Famotidine (Pepcid Iv) 20 mg DAILY IV ; Start 01/06/17 at 09:00 Enoxaparin Sodium (Lovenox) 40 mg DAILY SC ; Start 01/06/17 at 09:00 Hydromorphone HCl (Dilaudid ACLS NURSE) 0 MG/HR CONTINUOUS RATE .1... Q4PCA IV Last administered on 01/05/17 15:51; Admin Dose 6 MG; Start 01/05/17 at 15:30 Hydralazine HCl (Apresoline) 10 mg Q4H PRN IV SBP > 160; Start 01/06/17 at 05: 00 JC NEWBERRY MD Jan 06, 2017 04:51
--- NOTE | 2017-01-06 04:51 | CONS ---
Date/Time of Note Date/Time of Note DATE: 01/06/17 TIME: 04:43 Assessment/Plan Assessment/Plan Additional Assessment/Plan ASSESSMENT 76-year-old female with hx of HTN, colon cancer s/p surgery and chemo with recurrent ventral incisional hernia, hx of ITP s/p splenomegaly who is admitted s/p repair of ventral incisional hernia and lysis of admission(01/05/17). PLAN pain mgmt advance diet as tolerated Hold home BP meds with PRN anti-hypertensives for now. DVT ppx per surgery check am lab Consultation Date/Type/Reason Admit Date/Time Jan 05, 2017 at 08:01 Hx of Present Illness This is a 76-year-old female with hx of HTN, colon cancer s/p surgery and chemo with recurrent ventral incisional hernia, hx of ITP s/p splenomegaly who is admitted s/p repair of ventral incisional hernia and lysis of admission(01/05/17 ). Consult is placed for medical mgmt. Currently, pt denies CP, SOB, fever/ chills, N/V. She does have intermittent post-op abd pain. Past Medical History Medical History: hypertension, other (colon ca, ITP) Past Surgical History Past Surgical Hx: bowel resection Social History Alcohol Use: none Smoking Status: Never smoker Drug Use: none Exam/Review of Systems Vital Signs Vitals Vital Signs Date Time Temp Pulse Resp B/P Pulse Ox O2 Delivery O2 Flow Rate FiO2 01/06/17 01:00 17 01/05/17 23:57 98.9 118/59 93 01/05/17 23:00 3.0 01/05/17 20:40 Nasal Cannula 01/05/17 19:51 86 Intake and Output 01/05/17 01/05/17 01/06/17 15:00 23:00 07:00 Intake Total 1150 ml Output Total 555 ml 75 ml Balance 595 ml -75 ml Exam Constitutional: other (sleepy, but arousable. no acute distress) Head: atraumatic, normocephalic Eyes: PERRL Respiratory: clear to auscultation, normal air movement Cardiovascular: nl pulses, regular rate and rhythm Gastrointestinal: soft, surgical scars, tender Extremities: normal pulses Results Result Diagram: 01/05/17 0839 Results 24 hrs Laboratory Tests Test 01/05/17 08:39 Prothrombin Time 13.7 Prothrombin Time Ratio 1.1 INR International Normalized Ratio 1.05 Sodium Level 146 H Potassium Level 4.1 Chloride Level 105 Carbon Dioxide Level 29 Anion Gap 16 Blood Urea Nitrogen 17 Creatinine 0.66 Glucose Level 101 Calcium Level 9.1 Medications Medications Current Medications Potassium Chloride/Dextrose/ Sod Cl (D5-1/2ns + KCl 20 Meq) 1,000 ml @ 100 mls/ hr Q10H IV Last administered on 01/05/17 20:12; Admin Dose 100 MLS/HR; Start 01/05/17 at 15:21 Acetaminophen/ Hydrocodone Bitart ([place] (5/325)) 1 tab Q4H PRN PO PAIN LEVEL 4 -7; Start 01/05/17 at 15:30; Status Future Hold Acetaminophen/ Hydrocodone Bitart ([place] (5/325)) 2 tab Q4H PRN PO PAIN LEVEL 7 -10; Start 01/05/17 at 15:30; Status Future Hold Hydromorphone HCl (Dilaudid) 0.5 mg Q2H PRN IV PAIN; Start 01/05/17 at 15:30 Hydromorphone HCl (Dilaudid) 1 mg Q2H PRN IV PAIN; Start 01/05/17 at 15:30 Docusate Sodium (Colace) 100 mg BID PRN PO CONSTIPATION; Start 01/05/17 at 15: 30 Bisacodyl (Dulcolax Supp) 10 mg BID PRN [place] CONSTIPATION; Start 01/05/17 at 15: 30 Sodium Biphosphate/ Sodium Phosphate (Fleet Enema) 133 ml BID PRN [place] CONSTIPATION; Start 01/05/17 at 15:30 Famotidine (Pepcid Iv) 20 mg DAILY IV ; Start 01/06/17 at 09:00 Enoxaparin Sodium (Lovenox) 40 mg DAILY SC ; Start 01/06/17 at 09:00 Hydromorphone HCl (Dilaudid POLISHER NUMERAL) 0 MG/HR CONTINUOUS RATE .1... Q4PCA IV Last administered on 01/05/17 15:51; Admin Dose 6 MG; Start 01/05/17 at 15:30 Hydralazine HCl (Apresoline) 10 mg Q4H PRN IV SBP > 160; Start 01/06/17 at 05: 00 JC NEWBERRY MD Jan 06, 2017 04:51
[2017-01-06] MEDS ORDERED: hydrALAzine 20 MG INJ IV PRN (05:00)
[2017-01-06 07:36] VITALS: BP 123/59; RESP 18
[2017-01-06] MEDS: ENOXAPARIN 40 MG/0.4 ML SYG SC SCH (08:55)
[2017-01-06] MEDS ORDERED: FAMOTIDINE 20 MG INJ IV SCH (09:00)
--- NOTE | 2017-01-06 11:55 | PN ---
Date/Time of Note Date/Time of Note DATE: 01/06/17 TIME: 11:55 Assessment/Plan Lines/Catheters IV Catheter Type (from Nrsg): Peripheral IV Assessment/Plan Assessment/Plan [facility] Progress Note Date of Service: 01/06/2017 Location of Service: [facility] 4th floor Today's Assessment & Plan: Overall stable and doing relatively well. As expected, the most pressing issue is pain control. Abdomen remains benign. No indications of major postoperative complications or wound problems. No indication for acute surgical intervention. Awaiting further return of bowel function. Not ready for discharge home yet. Discussed with patient and answered all questions. No family in the room. Patient appeared to understand and agreed with plans With above assessment, I've recommended the following for today: 1. Keep in-house 2. Transition from VISUAL PRESENTATION MANAGER to oral pain medications 3. Added Toradol to the regimen 4. Increase activity 5. Increase incentive spirometry 6. Teach patient and family drain care since most likely she will will be discharged home with the drain in place 7. Home health set up 8. Possible discharge planning for the next 24-48 hours Thank you again for your great care of this very pleasant patient and wonderful family. If there are any questions, please feel free to call me at [phone]. Nature of presenting problem: High severity Please note that, given the multiple number of diagnoses or management options, the moderate amount and/or complexity of data needed to be reviewed, and moderate to high risk of complications and/or morbidity or mortality, this qualifies as moderate complexity type of decision-making. Disclaimers: 1. Inadvertent spelling and grammatical errors are likely due to electronic health record (EHR)/dictation software used and do not reflect on the quality of delivered patient care. 2. The electronic timestamp recorded on this note does not necessarily reflect the actual date and time of the visit or the service. 3. Portions of this note may have been created through electronic templates and computer algorithms that might bring in information either from the system or from other physicians and providers. Please note that such information may or may not contain errors, the occurrence of which are outside of my control. In general (but not always) this happens either in the beginning or at the end of the note. The portion of the note that I have created are generally done in 1 continuous block of text, flanked at the beginning and at the end by " ", and entered into one field in the EHR. 4. There may be other unanticipated errors in the note that are outside of my control. I can only attest to the portions of the note that I have created. Updated Clinical Summary: The patient is a very pleasant 76-year-old lady well known to me from prior encounters in 2013 that were for recurrent colon cancer. She underwent a laparoscopic hand-assisted distal colectomy with splenectomy for idiopathic thrombocytopenic purpura on 11/25/2013 for a final pathology of a T2 N0 M0 with 0/32 lymph node positive disease who presented with bulge in the lower abdominal area concerning for an incisional hernia. S/p abd/pelvis CT showing large 9-10 cm abdominal wall hernia. S/p surveillance colonoscopy May [address] scan dated 12/05/2016 showed presence of previously known large midline infraumbilical incisional hernia containing small bowel and no new findings. Comorbidities: 1. Ventral incisional hernia. S/p Complex repair of ventral incisional hernia with preperitoneal mesh (composite Ventralight ST 20.3 cm x 25.4cm cut to size; also used Acell 6 layer 7 x 5 cm mesh cut to size to reapproximate the upper midline posterior rectus sheath over exposed bowel), right rectus myocutaneous flap (CPT 37799), left rectus myocutaneous flap (CPT 12318), implantation of mesh (CPT 57408), lysis of adhesions (60 mi 6. Nutes) and therapeutic injection of subcutaneous Marcaine (CPT 58963) at [facility] 01/05/17 2. History of colon cancer, initially diagnosed in [facility] [place] December 2011, status post resection followed by 4 cycles of 5-FU that were completed in July 2012. 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 Status post resection of descending colon in November 2012 followed by treatment with Xeloda. Status post above-mentioned resection in 2013, treated with modified FOLFOX therapy (6 ) x12 cycles with most recent CT negative as of November 2014. 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 CT scan dated 12/05/2016 showed presence of previously known large midline infraumbilical incisional hernia containing small bowel and no new findings. 3. Idiopathic thrombocytopenic purpura status post splenectomy during colon resection in 2013. 4. Gastroesophageal reflux disease. 5. Prior left lower extremity deep venous thrombosis. 6. Probable history of uterine cancer. 7. Prior hysterectomy and bilateral salpingo-oophorectomy. 8. History of osteoporosis. 9. History of renal stones. 10. Status post 3 colon resections as above, 2011, 2012 and 2013. 11. Status post splenectomy during colon resection in 2013. 12. Status post hysterectomy and bilateral salpingo-oophorectomy. 13. Status post colonoscopy 06/06/16: One 3 mm polyp at hepatic flexure removed ; patent end-end colo-colonic anastomosis, healthy appearing; non-bleeding external hemorrhoids 14. Significant history of colon and other malignancies in the family; patient' s daughter had to undergo proctocolectomy (info came to light for me 11/23/16 during office visit) 15. Hypertension. Subjective: No major events or complaints; no major abd pain (if the patient does not move) and under control with medications; no n/v/d; no sob or cp; bowel activity; + activity Objective: Vitals: See below Exam: GENERAL: On exam, the patient was laying in bed and appeared to be comfortable and in no acute distress. ABDOMEN: Soft, tender to palpation around the incisions and nondistended. Incision dressing s are clean, dry and intact without any evidence of obvious underlying erythema, edema, discharge, or hernia. Surgical drain ss. There are no peritoneal signs or guarding. SKIN: Skin appears to be pink and feels warm to touch. NEUROLOGIC: Patient is awake, alert, and follows commands appropriately. Exam/Review of Systems Vital Signs Vitals Vital Signs Date Time Temp Pulse Resp B/P Pulse Ox O2 Delivery O2 Flow Rate FiO2 01/06/17 09:20 91 3.0 01/06/17 09:00 16 01/06/17 09:00 Nasal Cannula 01/06/17 07:36 99.8 88 123/59 Intake and Output 01/05/17 01/05/17 01/06/17 14:59 22:59 06:59 Intake Total 1150 ml 800 ml Output Total 555 ml 75 ml 5 ml Balance 595 ml -75 ml 795 ml Results Result Diagram: 01/06/17 0528 01/06/17 0528 ELEAZAR JONES M.D. Jan 06, 2017 11:55
--- NOTE | 2017-01-06 11:55 | PN ---
Date/Time of Note Date/Time of Note DATE: 01/06/17 TIME: 11:55 Assessment/Plan Lines/Catheters IV Catheter Type (from Nrsg): Peripheral IV Assessment/Plan Assessment/Plan [facility] Progress Note Date of Service: 01/06/2017 Location of Service: [facility] 4th floor Today's Assessment & Plan: Overall stable and doing relatively well. As expected, the most pressing issue is pain control. Abdomen remains benign. No indications of major postoperative complications or wound problems. No indication for acute surgical intervention. Awaiting further return of bowel function. Not ready for discharge home yet. Discussed with patient and answered all questions. No family in the room. Patient appeared to understand and agreed with plans With above assessment, I've recommended the following for today: 1. Keep in-house 2. Transition from INTENSIVE CARE AMBULANCE PARAMEDIC to oral pain medications 3. Added Toradol to the regimen 4. Increase activity 5. Increase incentive spirometry 6. Teach patient and family drain care since most likely she will will be discharged home with the drain in place 7. Home health set up 8. Possible discharge planning for the next 24-48 hours Thank you again for your great care of this very pleasant patient and wonderful family. If there are any questions, please feel free to call me at [phone]. Nature of presenting problem: High severity Please note that, given the multiple number of diagnoses or management options, the moderate amount and/or complexity of data needed to be reviewed, and moderate to high risk of complications and/or morbidity or mortality, this qualifies as moderate complexity type of decision-making. Disclaimers: 1. Inadvertent spelling and grammatical errors are likely due to electronic health record (EHR)/dictation software used and do not reflect on the quality of delivered patient care. 2. The electronic timestamp recorded on this note does not necessarily reflect the actual date and time of the visit or the service. 3. Portions of this note may have been created through electronic templates and computer algorithms that might bring in information either from the system or from other physicians and providers. Please note that such information may or may not contain errors, the occurrence of which are outside of my control. In general (but not always) this happens either in the beginning or at the end of the note. The portion of the note that I have created are generally done in 1 continuous block of text, flanked at the beginning and at the end by " ", and entered into one field in the EHR. 4. There may be other unanticipated errors in the note that are outside of my control. I can only attest to the portions of the note that I have created. Updated Clinical Summary: The patient is a very pleasant 76-year-old lady well known to me from prior encounters in 2013 that were for recurrent colon cancer. She underwent a laparoscopic hand-assisted distal colectomy with splenectomy for idiopathic thrombocytopenic purpura on 11/25/2013 for a final pathology of a T2 N0 M0 with 0/32 lymph node positive disease who presented with bulge in the lower abdominal area concerning for an incisional hernia. S/p abd/pelvis CT showing large 9-10 cm abdominal wall hernia. S/p surveillance colonoscopy May [address] scan dated 12/05/2016 showed presence of previously known large midline infraumbilical incisional hernia containing small bowel and no new findings. Comorbidities: 1. Ventral incisional hernia. S/p Complex repair of ventral incisional hernia with preperitoneal mesh (composite Ventralight ST 20.3 cm x 25.4cm cut to size; also used Acell 6 layer 7 x 5 cm mesh cut to size to reapproximate the upper midline posterior rectus sheath over exposed bowel), right rectus myocutaneous flap (CPT 76836), left rectus myocutaneous flap (CPT 98524), implantation of mesh (CPT 19444), lysis of adhesions (60 mi 6. Nutes) and therapeutic injection of subcutaneous Marcaine (CPT 55676) at [facility] 01/05/17 2. History of colon cancer, initially diagnosed in [place] December 2011, status post resection followed by 4 cycles of 5-FU that were completed in July 2012. 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 Status post resection of descending colon in November 2012 followed by treatment with Xeloda. Status post above-mentioned resection in 2013, treated with modified FOLFOX therapy (6 ) x12 cycles with most recent CT negative as of November 2014. 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 CT scan dated 12/05/2016 showed presence of previously known large midline infraumbilical incisional hernia containing small bowel and no new findings. 3. Idiopathic thrombocytopenic purpura status post splenectomy during colon resection in 2013. 4. Gastroesophageal reflux disease. 5. Prior left lower extremity deep venous thrombosis. 6. Probable history of uterine cancer. 7. Prior hysterectomy and bilateral salpingo-oophorectomy. 8. History of osteoporosis. 9. History of renal stones. 10. Status post 3 colon resections as above, 2011, 2012 and 2013. 11. Status post splenectomy during colon resection in 2013. 12. Status post hysterectomy and bilateral salpingo-oophorectomy. 13. Status post colonoscopy 06/06/16: One 3 mm polyp at hepatic flexure removed ; patent end-end colo-colonic anastomosis, healthy appearing; non-bleeding external hemorrhoids 14. Significant history of colon and other malignancies in the family; patient' s daughter had to undergo proctocolectomy (info came to light for me 11/23/16 during office visit) 15. Hypertension. Subjective: No major events or complaints; no major abd pain (if the patient does not move) and under control with medications; no n/v/d; no sob or cp; bowel activity; + activity Objective: Vitals: See below Exam: GENERAL: On exam, the patient was laying in bed and appeared to be comfortable and in no acute distress. ABDOMEN: Soft, tender to palpation around the incisions and nondistended. Incision dressing s are clean, dry and intact without any evidence of obvious underlying erythema, edema, discharge, or hernia. Surgical drain ss. There are no peritoneal signs or guarding. SKIN: Skin appears to be pink and feels warm to touch. NEUROLOGIC: Patient is awake, alert, and follows commands appropriately. Exam/Review of Systems Vital Signs Vitals Vital Signs Date Time Temp Pulse Resp B/P Pulse Ox O2 Delivery O2 Flow Rate FiO2 01/06/17 09:20 91 3.0 01/06/17 09:00 16 01/06/17 09:00 Nasal Cannula 01/06/17 07:36 99.8 88 123/59 Intake and Output 01/05/17 01/05/17 01/06/17 14:59 22:59 06:59 Intake Total 1150 ml 800 ml Output Total 555 ml 75 ml 5 ml Balance 595 ml -75 ml 795 ml Results Result Diagram: 01/06/17 0528 01/06/17 0528 ELEAZAR JONES M.D. Jan 06, 2017 11:55
[2017-01-06] MEDS ORDERED: KETOROLAC 30 MG INJ IV SCH (12:00)
[2017-01-06 12:04] VITALS: BP 116/56; RESP 18
[2017-01-06] MEDS: FUROSEMIDE 20 MG INJ IV SCH ×2 (12:40→17:56)
[2017-01-06] MEDS: KETOROLAC 15 MG INJ IV SCH ×2 (12:40→17:56)
[2017-01-06 16:00] VITALS: BP 115/57; RESP 19
[2017-01-06 17:57] VITALS: BP 127/58; PULSE 82
[2017-01-06 20:07] VITALS: BP 145/64; RESP 22
[2017-01-06] MEDS: FAMOTIDINE 20 MG TAB PO SCH (20:48)
[2017-01-07] VITALS (8 sets, daily range): BP systolic 117–137; BP diastolic 56–75; PULSE 97–105; RESP 18–20
[2017-01-07] MEDS: KETOROLAC 15 MG INJ IV SCH ×2 (00:43→06:19)
[2017-01-07] MEDS: ENOXAPARIN 40 MG/0.4 ML SYG SC SCH (08:34)
[2017-01-07] MEDS: CIPROFLOXACIN 250 MG TAB PO SCH ×2 (09:59→17:18)
[2017-01-07] MEDS: FUROSEMIDE 20 MG INJ IV SCH ×3 (11:23→23:35)
--- NOTE | 2017-01-07 12:13 | PN ---
Date/Time of Note Date/Time of Note DATE: 01/07/17 TIME: 12:10 Assessment/Plan VTE Prophylaxis VTE Prophylaxis Intervention: LMWH Lines/Catheters IV Catheter Type (from Nrs): Saline Lock Urinary Cath still in place: No Assessment/Plan Chief Complaint/Hosp Course 1. Ventral hernia status post repair Pain control Follow-up in surgery recommendations, possible DC in 1-2 days Monitor for bowel movements Ambulation 2. Hypertension Resume home Norvasc 3. History of colon cancer No acute issues 4. History of ITP status post spinal megaly No acute issues Prophylaxis: Lovenox Problems: Subjective 24 Hr Interval Summary Constitutional: no complaints Exam/Review of Systems Vital Signs Vitals Vital Signs Date Time Temp Pulse Resp B/P Pulse Ox O2 Delivery O2 Flow Rate FiO2 01/07/17 11:57 98.2 105 18 135/63 92 01/07/17 11:24 Nasal Cannula 2.0 Intake and Output 01/06/17 01/06/17 01/07/17 15:00 23:00 07:00 Intake Total 1300 ml 1900 ml 900 ml Output Total 1050 ml 40 ml 855 ml Balance 250 ml 1860 ml 45 ml Exam Constitutional: alert, oriented Respiratory: clear to auscultation Cardiovascular: regular rate and rhythm Gastrointestinal: soft, No distended Musculoskeletal: nl extremities to inspection Results Result Diagram: 01/07/17 0507 01/07/17 0507 Results 24 hrs Laboratory Tests Test 01/07/17 05:07 01/07/17 08:45 White Blood Count 20.5 #H Red Blood Count 4.32 Hemoglobin 12.5 Hematocrit 38.7 Mean Corpuscular Volume 89.6 Mean Corpuscular Hemoglobin 28.9 L Mean Corpuscular Hemoglobin Concent 32.3 Red Cell Distribution Width 14.6 H Platelet Count 131 #L Mean Platelet Volume 12.6 #H Neutrophils % 71.8 Lymphocytes % 15.1 Monocytes % 11.1 H Eosinophils % 1.0 Basophils % 0.3 Nucleated Red Blood Cells % 0.0 Neutrophils # 14.7 H Lymphocytes # 3.1 H Monocytes # 2.3 H Eosinophils # 0.2 Basophils # 0.1 Nucleated Red Blood Cells # 0.0 Sodium Level 140 Potassium Level 4.3 Chloride Level 105 Carbon Dioxide Level 28 Anion Gap 11 Blood Urea Nitrogen 16 Creatinine 0.65 Glucose Level 103 Calcium Level 8.1 L Phosphorus Level 2.6 Magnesium Level 2.2 B-Type Natriuretic Peptide 768 H Urine Color YELLOW Urine Clarity CLEAR Urine pH 5.0 Urine Specific [place] 1.023 Urine Ketones 2+ H Urine Nitrite NEGATIVE Urine Bilirubin NEGATIVE Urine Urobilinogen 1+ H Urine Leukocyte Esterase NEGATIVE Urine Microscopic RBC 8 H Urine Microscopic WBC 7 H Urine Mucus MODERATE Urine Hemoglobin 1+ H Urine Glucose NEGATIVE Urine Total Protein 1+ H Medications Medications Current Medications Acetaminophen/ Hydrocodone Bitart ([place] (5/325)) 1 tab Q4H PRN PO PAIN LEVEL 4 -7 Last administered on 01/06/17 11:50; Admin Dose 1 TAB; Start 01/05/17 at 15:30; Status Future hold Acetaminophen/ Hydrocodone Bitart ([place] (5/325)) 2 tab Q4H PRN PO PAIN LEVEL 7 -10; Start 01/05/17 at 15:30; Status Future hold Hydromorphone HCl (Dilaudid) 0.5 mg Q2H PRN IV PAIN; Start 01/05/17 at 15:30 Hydromorphone HCl (Dilaudid) 1 mg Q2H PRN IV PAIN; Start 01/05/17 at 15:30 Docusate Sodium (Colace) 100 mg BID PRN PO CONSTIPATION; Start 01/05/17 at 15: 30 Bisacodyl (Dulcolax Supp) 10 mg BID PRN [place] CONSTIPATION; Start 01/05/17 at 15: 30 Sodium Biphosphate/ Sodium Phosphate (Fleet Enema) 133 ml BID PRN [place] CONSTIPATION; Start 01/05/17 at 15:30 Enoxaparin Sodium (Lovenox) 40 mg DAILY SC Last administered on 01/07/17 08: 34; Admin Dose 40 MG; Start 01/06/17 at 09:00 Hydralazine HCl (Apresoline) 10 mg Q4H PRN IV SBP > 160; Start 01/06/17 at 05: 00 Famotidine (Pepcid) 40 mg HS PO Last administered on 01/06/17 20:48; Admin Dose 40 MG; Start 01/06/17 at 21:00 Furosemide (Lasix) 20 mg Q6 IV Last administered on 01/07/17 11:23; Admin Dose 20 MG; Start 01/07/17 at 12:00; Stop 01/08/17 at 06:01 Ciprofloxacin (Cipro) 250 mg BID@06,18 PO Last administered on 01/07/17t 09:59 ; Admin Dose 250 MG; Start 01/07/17 at 10:00 SHIRLEY HERNANDEZ Jan 07, 2017 12:13
--- NOTE | 2017-01-07 12:13 | PN ---
Date/Time of Note Date/Time of Note DATE: 01/07/17 TIME: 12:10 Assessment/Plan VTE Prophylaxis VTE Prophylaxis Intervention: LMWH Lines/Catheters IV Catheter Type (from Nrs): Saline Lock Urinary Cath still in place: No Assessment/Plan Chief Complaint/Hosp Course 1. Ventral hernia status post repair Pain control Follow-up in surgery recommendations, possible DC in 1-2 days Monitor for bowel movements Ambulation 2. Hypertension Resume home Norvasc 3. History of colon cancer No acute issues 4. History of ITP status post spinal megaly No acute issues Prophylaxis: Lovenox Problems: Subjective 24 Hr Interval Summary Constitutional: no complaints Exam/Review of Systems Vital Signs Vitals Vital Signs Date Time Temp Pulse Resp B/P Pulse Ox O2 Delivery O2 Flow Rate FiO2 01/07/17 11:57 98.2 105 18 135/63 92 01/07/17 11:24 Nasal Cannula 2.0 Intake and Output 01/06/17 01/06/17 01/07/17 15:00 23:00 07:00 Intake Total 1300 ml 1900 ml 900 ml Output Total 1050 ml 40 ml 855 ml Balance 250 ml 1860 ml 45 ml Exam Constitutional: alert, oriented Respiratory: clear to auscultation Cardiovascular: regular rate and rhythm Gastrointestinal: soft, No distended Musculoskeletal: nl extremities to inspection Results Result Diagram: 01/07/17 0507 01/07/17 0507 Results 24 hrs Laboratory Tests Test 01/07/17 05:07 01/07/17 08:45 White Blood Count 20.5 #H Red Blood Count 4.32 Hemoglobin 12.5 Hematocrit 38.7 Mean Corpuscular Volume 89.6 Mean Corpuscular Hemoglobin 28.9 L Mean Corpuscular Hemoglobin Concent 32.3 Red Cell Distribution Width 14.6 H Platelet Count 131 #L Mean Platelet Volume 12.6 #H Neutrophils % 71.8 Lymphocytes % 15.1 Monocytes % 11.1 H Eosinophils % 1.0 Basophils % 0.3 Nucleated Red Blood Cells % 0.0 Neutrophils # 14.7 H Lymphocytes # 3.1 H Monocytes # 2.3 H Eosinophils # 0.2 Basophils # 0.1 Nucleated Red Blood Cells # 0.0 Sodium Level 140 Potassium Level 4.3 Chloride Level 105 Carbon Dioxide Level 28 Anion Gap 11 Blood Urea Nitrogen 16 Creatinine 0.65 Glucose Level 103 Calcium Level 8.1 L Phosphorus Level 2.6 Magnesium Level 2.2 B-Type Natriuretic Peptide 768 H Urine Color YELLOW Urine Clarity CLEAR Urine pH 5.0 Urine Specific [place] 1.023 Urine Ketones 2+ H Urine Nitrite NEGATIVE Urine Bilirubin NEGATIVE Urine Urobilinogen 1+ H Urine Leukocyte Esterase NEGATIVE Urine Microscopic RBC 8 H Urine Microscopic WBC 7 H Urine Mucus MODERATE Urine Hemoglobin 1+ H Urine Glucose NEGATIVE Urine Total Protein 1+ H Medications Medications Current Medications Acetaminophen/ Hydrocodone Bitart ([place] (5/325)) 1 tab Q4H PRN PO PAIN LEVEL 4 -7 Last administered on 01/06/17 11:50; Admin Dose 1 TAB; Start 01/05/17 at 15:30; Status Future hold Acetaminophen/ Hydrocodone Bitart ([place] (5/325)) 2 tab Q4H PRN PO PAIN LEVEL 7 -10; Start 01/05/17 at 15:30; Status Future hold Hydromorphone HCl (Dilaudid) 0.5 mg Q2H PRN IV PAIN; Start 01/05/17 at 15:30 Hydromorphone HCl (Dilaudid) 1 mg Q2H PRN IV PAIN; Start 01/05/17 at 15:30 Docusate Sodium (Colace) 100 mg BID PRN PO CONSTIPATION; Start 01/05/17 at 15: 30 Bisacodyl (Dulcolax Supp) 10 mg BID PRN [place] CONSTIPATION; Start 01/05/17 at 15: 30 Sodium Biphosphate/ Sodium Phosphate (Fleet Enema) 133 ml BID PRN [place] CONSTIPATION; Start 01/05/17 at 15:30 Enoxaparin Sodium (Lovenox) 40 mg DAILY SC Last administered on 01/07/17 08: 34; Admin Dose 40 MG; Start 01/06/17 at 09:00 Hydralazine HCl (Apresoline) 10 mg Q4H PRN IV SBP > 160; Start 01/06/17 at 05: 00 Famotidine (Pepcid) 40 mg HS PO Last administered on 01/06/17 20:48; Admin Dose 40 MG; Start 01/06/17 at 21:00 Furosemide (Lasix) 20 mg Q6 IV Last administered on 01/07/17 11:23; Admin Dose 20 MG; Start 01/07/17 at 12:00; Stop 01/08/17 at 06:01 Ciprofloxacin (Cipro) 250 mg BID@06,18 PO Last administered on 01/07/17t 09:59 ; Admin Dose 250 MG; Start 01/07/17 at 10:00 SHIRLEY HERNANDEZ Jan 07, 2017 12:13
--- NOTE | 2017-01-07 12:13 | PN ---
Date/Time of Note Date/Time of Note DATE: 01/07/17 TIME: 12:10 Assessment/Plan VTE Prophylaxis VTE Prophylaxis Intervention: LMWH Lines/Catheters IV Catheter Type (from Nrs): Saline Lock Urinary Cath still in place: No Assessment/Plan Chief Complaint/Hosp Course 1. Ventral hernia status post repair Pain control Follow-up in surgery recommendations, possible DC in 1-2 days Monitor for bowel movements Ambulation 2. Hypertension Resume home Norvasc 3. History of colon cancer No acute issues 4. History of ITP status post spinal megaly No acute issues Prophylaxis: Lovenox Problems: Subjective 24 Hr Interval Summary Constitutional: no complaints Exam/Review of Systems Vital Signs Vitals Vital Signs Date Time Temp Pulse Resp B/P Pulse Ox O2 Delivery O2 Flow Rate FiO2 01/07/17 11:57 98.2 105 18 135/63 92 01/07/17 11:24 Nasal Cannula 2.0 Intake and Output 01/06/17 01/06/17 01/07/17 15:00 23:00 07:00 Intake Total 1300 ml 1900 ml 900 ml Output Total 1050 ml 40 ml 855 ml Balance 250 ml 1860 ml 45 ml Exam Constitutional: alert, oriented Respiratory: clear to auscultation Cardiovascular: regular rate and rhythm Gastrointestinal: soft, No distended Musculoskeletal: nl extremities to inspection Results Result Diagram: 01/07/17 0507 01/07/17 0507 Results 24 hrs Laboratory Tests Test 01/07/17 05:07 01/07/17 08:45 White Blood Count 20.5 #H Red Blood Count 4.32 Hemoglobin 12.5 Hematocrit 38.7 Mean Corpuscular Volume 89.6 Mean Corpuscular Hemoglobin 28.9 L Mean Corpuscular Hemoglobin Concent 32.3 Red Cell Distribution Width 14.6 H Platelet Count 131 #L Mean Platelet Volume 12.6 #H Neutrophils % 71.8 Lymphocytes % 15.1 Monocytes % 11.1 H Eosinophils % 1.0 Basophils % 0.3 Nucleated Red Blood Cells % 0.0 Neutrophils # 14.7 H Lymphocytes # 3.1 H Monocytes # 2.3 H Eosinophils # 0.2 Basophils # 0.1 Nucleated Red Blood Cells # 0.0 Sodium Level 140 Potassium Level 4.3 Chloride Level 105 Carbon Dioxide Level 28 Anion Gap 11 Blood Urea Nitrogen 16 Creatinine 0.65 Glucose Level 103 Calcium Level 8.1 L Phosphorus Level 2.6 Magnesium Level 2.2 B-Type Natriuretic Peptide 768 H Urine Color YELLOW Urine Clarity CLEAR Urine pH 5.0 Urine Specific [place] 1.023 Urine Ketones 2+ H Urine Nitrite NEGATIVE Urine Bilirubin NEGATIVE Urine Urobilinogen 1+ H Urine Leukocyte Esterase NEGATIVE Urine Microscopic RBC 8 H Urine Microscopic WBC 7 H Urine Mucus MODERATE Urine Hemoglobin 1+ H Urine Glucose NEGATIVE Urine Total Protein 1+ H Medications Medications Current Medications Acetaminophen/ Hydrocodone Bitart ([place] (5/325)) 1 tab Q4H PRN PO PAIN LEVEL 4 -7 Last administered on 01/06/17 11:50; Admin Dose 1 TAB; Start 01/05/17 at 15:30; Status Future hold Acetaminophen/ Hydrocodone Bitart ([place] (5/325)) 2 tab Q4H PRN PO PAIN LEVEL 7 -10; Start 01/05/17 at 15:30; Status Future hold Hydromorphone HCl (Dilaudid) 0.5 mg Q2H PRN IV PAIN; Start 01/05/17 at 15:30 Hydromorphone HCl (Dilaudid) 1 mg Q2H PRN IV PAIN; Start 01/05/17 at 15:30 Docusate Sodium (Colace) 100 mg BID PRN PO CONSTIPATION; Start 01/05/17 at 15: 30 Bisacodyl (Dulcolax Supp) 10 mg BID PRN [place] CONSTIPATION; Start 01/05/17 at 15: 30 Sodium Biphosphate/ Sodium Phosphate (Fleet Enema) 133 ml BID PRN [place] CONSTIPATION; Start 01/05/17 at 15:30 Enoxaparin Sodium (Lovenox) 40 mg DAILY SC Last administered on 01/07/17 08: 34; Admin Dose 40 MG; Start 01/06/17 at 09:00 Hydralazine HCl (Apresoline) 10 mg Q4H PRN IV SBP > 160; Start 01/06/17 at 05: 00 Famotidine (Pepcid) 40 mg HS PO Last administered on 01/06/17 20:48; Admin Dose 40 MG; Start 01/06/17 at 21:00 Furosemide (Lasix) 20 mg Q6 IV Last administered on 01/07/17 11:23; Admin Dose 20 MG; Start 01/07/17 at 12:00; Stop 01/08/17 at 06:01 Ciprofloxacin (Cipro) 250 mg BID@06,18 PO Last administered on 01/07/17t 09:59 ; Admin Dose 250 MG; Start 01/07/17 at 10:00 SHIRLEY HERNANDEZ Jan 07, 2017 12:13
[2017-01-07] MEDS: AMLODIPINE 5 MG TAB PO SCH (12:19)
--- NOTE | 2017-01-07 14:20 | PN ---
Date/Time of Note Date/Time of Note DATE: 01/07/17 TIME: 14:18 Assessment/Plan Lines/Catheters IV Catheter Type (from Nrs): Saline Lock Cshrader in Place (from Nrs): No Assessment/Plan Assessment/Plan [facility] Progress Note Date of Service: 01/07/2017 Location of Service: [facility] 4th floor Today's Assessment & Plan: Overall stable and doing relatively well. Pain control better. Abdomen remains benign. No indications of major postoperative complications or wound problems. No indication for acute surgical intervention. Awaiting further return of bowel function. Not ready for discharge home yet. Urine blood seems post procedure and not associated with UTI. WBC rise noted, but no other signs of infection. Will hold off on antimicrobials and check labs. Discussed with patient and answered all questions. No family in the room. Patient appeared to understand and agreed with plans With above assessment, I've recommended the following for today: 1. Keep in-house 2. Cont oral conversion 3. Cont Toradol 4. Increase activity 5. Increase incentive spirometry 6. Teach patient and family drain care since most likely she will will be discharged home with the drain in place 7. Home health set up 8. Possible discharge planning for the next 24-48 hours Thank you again for your great care of this very pleasant patient and wonderful family. If there are any questions, please feel free to call me at [phone]. Nature of presenting problem: High severity Please note that, given the multiple number of diagnoses or management options, the moderate amount and/or complexity of data needed to be reviewed, and moderate to high risk of complications and/or morbidity or mortality, this qualifies as moderate complexity type of decision-making. Disclaimers: 1. Inadvertent spelling and grammatical errors are likely due to electronic health record (EHR)/dictation software used and do not reflect on the quality of delivered patient care. 2. The electronic timestamp recorded on this note does not necessarily reflect the actual date and time of the visit or the service. 3. Portions of this note may have been created through electronic templates and computer algorithms that might bring in information either from the system or from other physicians and providers. Please note that such information may or may not contain errors, the occurrence of which are outside of my control. In general (but not always) this happens either in the beginning or at the end of the note. The portion of the note that I have created are generally done in 1 continuous block of text, flanked at the beginning and at the end by " ", and entered into one field in the EHR. 4. There may be other unanticipated errors in the note that are outside of my control. I can only attest to the portions of the note that I have created. Updated Clinical Summary: The patient is a very pleasant 76-year-old lady well known to me from prior encounters in 2013 that were for recurrent colon cancer. She underwent a laparoscopic hand-assisted distal colectomy with splenectomy for idiopathic thrombocytopenic purpura on 11/25/2013 for a final pathology of a T2 N0 M0 with 0/32 lymph node positive disease who presented with bulge in the lower abdominal area concerning for an incisional hernia. S/p abd/pelvis CT showing large 9-10 cm abdominal wall hernia. S/p surveillance colonoscopy May [address] scan dated 12/05/2016 showed presence of previously known large midline infraumbilical incisional hernia containing small bowel and no new findings. Comorbidities: 1. Ventral incisional hernia. S/p Complex repair of ventral incisional hernia with preperitoneal mesh (composite Ventralight ST 20.3 cm x 25.4cm cut to size; also used Acell 6 layer 7 x 5 cm mesh cut to size to reapproximate the upper midline posterior rectus sheath over exposed bowel), right rectus myocutaneous flap (CPT 28247), left rectus myocutaneous flap (CPT 93958), implantation of mesh (CPT 66599), lysis of adhesions (60 mi 6. Nutes) and therapeutic injection of subcutaneous Marcaine (CPT 29123) at [facility] 01/05/17 2. History of colon cancer, initially diagnosed in [place] December 2011, status post resection followed by 4 cycles of 5-FU that were completed in July 2012. 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 Status post resection of descending colon in November 2012 followed by treatment with Xeloda. Status post above-mentioned resection in 2013, treated with modified FOLFOX therapy (6 ) x12 cycles with most recent CT negative as of November 2014. 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 CT scan dated 12/05/2016 showed presence of previously known large midline infraumbilical incisional hernia containing small bowel and no new findings. 3. Idiopathic thrombocytopenic purpura status post splenectomy during colon resection in 2013. 4. Gastroesophageal reflux disease. 5. Prior left lower extremity deep venous thrombosis. 6. Probable history of uterine cancer. 7. Prior hysterectomy and bilateral salpingo-oophorectomy. 8. History of osteoporosis. 9. History of renal stones. 10. Status post 3 colon resections as above, 2011, 2012 and 2013. 11. Status post splenectomy during colon resection in 2013. 12. Status post hysterectomy and bilateral salpingo-oophorectomy. 13. Status post colonoscopy 06/06/16: One 3 mm polyp at hepatic flexure removed ; patent end-end colo-colonic anastomosis, healthy appearing; non-bleeding external hemorrhoids 14. Significant history of colon and other malignancies in the family; patient' s daughter had to undergo proctocolectomy (info came to light for me 11/23/16 during office visit) 15. Hypertension. Subjective: No major events or complaints; reports feeling better; no major abd pain and under control with medications; no n/v/d; no sob or cp; bowel activity; + activity Objective: Vitals: See below Exam: GENERAL: On exam, the patient was laying in bed and appeared to be comfortable and in no acute distress. ABDOMEN: Soft, tender to palpation around the incisions and nondistended. Incision dressings d/c'd and incisions are clean, dry and intact without any evidence of obvious underlying erythema, edema, discharge, or hernia. Surgical drain ss. There are no peritoneal signs or guarding. SKIN: Skin appears to be pink and feels warm to touch. NEUROLOGIC: Patient is awake, alert, and follows commands appropriately. Exam/Review of Systems Vital Signs Vitals Vital Signs Date Time Temp Pulse Resp B/P Pulse Ox O2 Delivery O2 Flow Rate FiO2 01/07/17 11:57 98.2 105 18 135/63 92 01/07/17 11:24 Nasal Cannula 2.0 Intake and Output 10/01/06/17 01/07/17 15:00 23:00 07:00 Intake Total 1300 ml 1900 ml 900 ml Output Total 1050 ml 40 ml 855 ml Balance 250 ml 1860 ml 45 ml Results Result Diagram: 01/07/17 0507 01/07/17 0507 ELEAZAR JONES M.D. Jan 07, 2017 14:20
[2017-01-07] MEDS ORDERED: KETOROLAC 30 MG INJ IV PRN (14:30)
[2017-01-07] MEDS ORDERED: ACETAMINOPHEN 325 MG TAB PO PRN (21:00)
[2017-01-07] MEDS: FAMOTIDINE 20 MG TAB PO SCH (21:44)
[2017-01-08 02:01] VITALS: BP 114/59; RESP 20
[2017-01-08] MEDS: FUROSEMIDE 20 MG INJ IV SCH (05:28)
[2017-01-08] MEDS: CIPROFLOXACIN 250 MG TAB PO SCH ×2 (05:28→17:27)
[2017-01-08 05:48] VITALS: BP 141/74; PULSE 71; RESP 18
[2017-01-08 07:15] VITALS: BP 132/63; RESP 18
[2017-01-08] MEDS: AMLODIPINE 5 MG TAB PO SCH (08:49)
[2017-01-08] MEDS: ENOXAPARIN 40 MG/0.4 ML SYG SC SCH (08:50)
[2017-01-08 14:00] VITALS: BP 118/58; RESP 16
--- NOTE | 2017-01-08 16:11 | DS ---
Date/Time of Note Date/Time of Note DATE: 01/08/17 TIME: 16:09 Discharge Summary Admission/Discharge Info Admit Date/Time Jan 05, 2017 at 08:01 Discharge Date/Time Patient Condition: Good Hospital Course Updated Clinical Summary: The patient is a very pleasant 76-year-old lady well known to me from prior encounters in 2013 that were for recurrent colon cancer. She underwent a laparoscopic hand-assisted distal colectomy with splenectomy for idiopathic thrombocytopenic purpura on 11/25/2013 for a final pathology of a T2 N0 M0 with 0/32 lymph node positive disease who presented with bulge in the lower abdominal area concerning for an incisional hernia. S/p abd/pelvis CT showing large 9-10 cm abdominal wall hernia. S/p surveillance colonoscopy May [address] scan dated 12/05/2016 showed presence of previously known large midline infraumbilical incisional hernia containing small bowel and no new findings. S/p complex repair of ventral incisional hernia with preperitoneal mesh as outlined below. For a detailed report, please see my op note from same date. Post op, patient did very well without any evidence for major post-operative complication or wound problems. By the time of discharge, patient was tolerating a regular diet, had adequate pain control on oral pain medications, had shown return of bowel activity and was clinically stable. Surgical drain d/c'd prior to discharge without difficulty. She is therefore being discharged today. In addition to her home meds, I wrote her for: 1. [place] (5/325) 40 tabs and no refill 2. Colace 25 and 2 3. Dulcolax 10 and 3 Comorbidities: 1. Ventral incisional hernia. S/p Complex repair of ventral incisional hernia with preperitoneal mesh (composite Ventralight ST 20.3 cm x 25.4cm cut to size; also used Acell 6 layer 7 x 5 cm mesh cut to size to reapproximate the upper midline posterior rectus sheath over exposed bowel), right rectus myocutaneous flap (CPT 25809), left rectus myocutaneous flap (CPT 98973), implantation of mesh (CPT 06773), lysis of adhesions (60 mi 6. Nutes) and therapeutic injection of subcutaneous Marcaine (CPT 70081) at [facility] 01/05/17 2. History of colon cancer, initially diagnosed in [place] December 2011, status post resection followed by 4 cycles of 5-FU that were completed in July 2012. 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 Status post resection of descending colon in November 2012 followed by treatment with Xeloda. Status post above-mentioned resection in 2013, treated with modified FOLFOX therapy (6 ) x12 cycles with most recent CT negative as of November 2014. 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 CT scan dated 12/05/2016 showed presence of previously known large midline infraumbilical incisional hernia containing small bowel and no new findings. 3. Idiopathic thrombocytopenic purpura status post splenectomy during colon resection in 2013. 4. Gastroesophageal reflux disease. 5. Prior left lower extremity deep venous thrombosis. 6. Probable history of uterine cancer. 7. Prior hysterectomy and bilateral salpingo-oophorectomy. 8. History of osteoporosis. 9. History of renal stones. 10. Status post 3 colon resections as above, 2011, 2012 and 2013. 11. Status post splenectomy during colon resection in 2013. 12. Status post hysterectomy and bilateral salpingo-oophorectomy. 13. Status post colonoscopy 06/06/16: One 3 mm polyp at hepatic flexure removed ; patent end-end colo-colonic anastomosis, healthy appearing; non-bleeding external hemorrhoids 14. Significant history of colon and other malignancies in the family; patient' s daughter had to undergo proctocolectomy (info came to light for me 11/23/16 during office visit) 15. Hypertension. Other notes (not the signer's) 1. Ventral hernia status post repair Pain control Follow-up in surgery recommendations, possible DC in 1-2 days Monitor for bowel movements Ambulation 2. Hypertension Resume home Norvasc 3. History of colon cancer No acute issues 4. History of ITP status post spinal megaly No acute issues Prophylaxis: Lovenox Home Meds Reported Medications Amlodipine Besylate* (Norvasc*) 5 Mg Tablet, 5 MG PO DAILY, TAB 01/05/17 Omeprazole* (Omeprazole*) 40 Mg Capsule.dr, 40 MG PO DAILY, #30 CAP 02/01/16 Discontinued Reported Medications Amlodipine Besylate* (Amlodipine Besylate*) 10 Mg Tablet, 10 MG PO DAILY, #30 TAB 02/01/16 Primary Care Provider Pearl Pan MD Pending Labs Laboratory Tests Test 01/08/17 04:39 White Blood Count 15.210^3/ul (4.8-10.8) Red Blood Count 4.2510^6/ul (4.20-5.40) Hemoglobin 12.1g/dl (12.0-16.0) Hematocrit 37.8% (37.0-47.0) Mean Corpuscular Volume 88.9fl (82.0-101.0) Mean Corpuscular Hemoglobin 28.5pg (29.0-33.0) Mean Corpuscular Hemoglobin Concent 32.0g/dl (32.0-37.0) Red Cell Distribution Width 14.4% (11.5-14.5) Platelet Count 63481^3/UL (140-415) Mean Platelet Volume 11.1fl (7.4-10.4) Neutrophils % 63.2% (39.0-77.0) Lymphocytes % 21.8% (15.0-51.0) Monocytes % 12.4% (0.0-11.0) Eosinophils % 1.8% (0.0-7.0) Basophils % 0.3% (0.0-2.0) Nucleated Red Blood Cells % 0.0/100WBC (0.0-0.0) Neutrophils # 9.610^3/ul (1.6-7.5) Lymphocytes # 3.310^3/ul (0.8-2.9) Monocytes # 1.910^3/ul (0.3-0.9) Eosinophils # 0.310^3/ul (0.0-0.5) Basophils # 0.110^3/ul (0.0-0.1) Nucleated Red Blood Cells # 0.010^3/ul (0.0-0.0) Prothrombin Time 16.0Sec (12.2-14.2) Prothrombin Time Ratio 1.3 INR International Normalized Ratio 1.27 Activated Partial Thromboplast Time 65.9Sec (25.0-35.0) Sodium Level 143mmol/L (135-144) Potassium Level 3.9mmol/L (3.5-5.1) Chloride Level 103mmol/L (97-110) Carbon Dioxide Level 34mmol/L (21-31) Anion Gap 10 (8-16) Blood Urea Nitrogen 17mg/dl (7-20) Creatinine 0.72mg/dl (0.44-1.00) Glucose Level 104mg/dl (70-220) Calcium Level 8.3mg/dl (8.4-10.2) Phosphorus Level 2.1mg/dl (2.5-4.9) Magnesium Level 2.3mg/dl (1.7-2.5) Total Bilirubin 1.1mg/dl (0.2-1.3) Direct Bilirubin 0.00mg/dl (0.00-0.20) Indirect Bilirubin 1.1mg/dl (0-1.1) Aspartate Amino Transf (AST/SGOT) 22IU/L (15-46) Alanine Aminotransferase (ALT/SGPT) 31IU/L (13-69) Alkaline Phosphatase 66IU/L (42-121) B-Type Natriuretic Peptide 299PG/ML (0-450) Total Protein 6.0g/dl (6.1-8.1) Albumin 3.0g/dl (3.3-4.9) Globulin 3.00g/dl (1.3-3.2) Albumin/Globulin Ratio 1.00 ELEAZAR OJNES M.D. Jan 08, 2017 16:11
--- NOTE | 2017-01-08 16:11 | DS ---
Date/Time of Note Date/Time of Note DATE: 01/08/17 TIME: 16:09 Discharge Summary Admission/Discharge Info Admit Date/Time Jan 05, 2017 at 08:01 Discharge Date/Time Patient Condition: Good Hospital Course Updated Clinical Summary: The patient is a very pleasant 76-year-old lady well known to me from prior encounters in 2013 that were for recurrent colon cancer. She underwent a laparoscopic hand-assisted distal colectomy with splenectomy for idiopathic thrombocytopenic purpura on 11/25/2013 for a final pathology of a T2 N0 M0 with 0/32 lymph node positive disease who presented with bulge in the lower abdominal area concerning for an incisional hernia. S/p abd/pelvis CT showing large 9-10 cm abdominal wall hernia. S/p surveillance colonoscopy May [address] scan dated 12/05/2016 showed presence of previously known large midline infraumbilical incisional hernia containing small bowel and no new findings. S/p complex repair of ventral incisional hernia with preperitoneal mesh as outlined below. For a detailed report, please see my op note from same date. Post op, patient did very well without any evidence for major post-operative complication or wound problems. By the time of discharge, patient was tolerating a regular diet, had adequate pain control on oral pain medications, had shown return of bowel activity and was clinically stable. Surgical drain d/c'd prior to discharge without difficulty. She is therefore being discharged today. In addition to her home meds, I wrote her for: 1. [place] (5/325) 40 tabs and no refill 2. Colace 25 and 2 3. Dulcolax 10 and 3 Comorbidities: 1. Ventral incisional hernia. S/p Complex repair of ventral incisional hernia with preperitoneal mesh (composite Ventralight ST 20.3 cm x 25.4cm cut to size; also used Acell 6 layer 7 x 5 cm mesh cut to size to reapproximate the upper midline posterior rectus sheath over exposed bowel), right rectus myocutaneous flap (CPT 65477), left rectus myocutaneous flap (CPT 03852), implantation of mesh (CPT 94990), lysis of adhesions (60 mi 6. Nutes) and therapeutic injection of subcutaneous Marcaine (CPT 64002) at [facility] 01/05/17 2. History of colon cancer, initially diagnosed in [place] December 2011, status post resection followed by 4 cycles of 5-FU that were completed in July 2012. 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 Status post resection of descending colon in November 2012 followed by treatment with Xeloda. Status post above-mentioned resection in 2013, treated with modified FOLFOX therapy (6 ) x12 cycles with most recent CT negative as of November 2014. 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 CT scan dated 12/05/2016 showed presence of previously known large midline infraumbilical incisional hernia containing small bowel and no new findings. 3. Idiopathic thrombocytopenic purpura status post splenectomy during colon resection in 2013. 4. Gastroesophageal reflux disease. 5. Prior left lower extremity deep venous thrombosis. 6. Probable history of uterine cancer. 7. Prior hysterectomy and bilateral salpingo-oophorectomy. 8. History of osteoporosis. 9. History of renal stones. 10. Status post 3 colon resections as above, 2011, 2012 and 2013. 11. Status post splenectomy during colon resection in 2013. 12. Status post hysterectomy and bilateral salpingo-oophorectomy. 13. Status post colonoscopy 06/06/16: One 3 mm polyp at hepatic flexure removed ; patent end-end colo-colonic anastomosis, healthy appearing; non-bleeding external hemorrhoids 14. Significant history of colon and other malignancies in the family; patient' s daughter had to undergo proctocolectomy (info came to light for me 11/23/16 during office visit) 15. Hypertension. Other notes (not the signer's) 1. Ventral hernia status post repair Pain control Follow-up in surgery recommendations, possible DC in 1-2 days Monitor for bowel movements Ambulation 2. Hypertension Resume home Norvasc 3. History of colon cancer No acute issues 4. History of ITP status post spinal megaly No acute issues Prophylaxis: Lovenox Home Meds Reported Medications Amlodipine Besylate* (Norvasc*) 5 Mg Tablet, 5 MG PO DAILY, TAB 01/05/17 Omeprazole* (Omeprazole*) 40 Mg Capsule.dr, 40 MG PO DAILY, #30 CAP 02/01/16 Discontinued Reported Medications Amlodipine Besylate* (Amlodipine Besylate*) 10 Mg Tablet, 10 MG PO DAILY, #30 TAB 02/01/16 Primary Care Provider Pearl Pan MD Pending Labs Laboratory Tests Test 01/08/17 04:39 White Blood Count 15.210^3/ul (4.8-10.8) Red Blood Count 4.2510^6/ul (4.20-5.40) Hemoglobin 12.1g/dl (12.0-16.0) Hematocrit 37.8% (37.0-47.0) Mean Corpuscular Volume 88.9fl (82.0-101.0) Mean Corpuscular Hemoglobin 28.5pg (29.0-33.0) Mean Corpuscular Hemoglobin Concent 32.0g/dl (32.0-37.0) Red Cell Distribution Width 14.4% (11.5-14.5) Platelet Count 85282^3/UL (140-415) Mean Platelet Volume 11.1fl (7.4-10.4) Neutrophils % 63.2% (39.0-77.0) Lymphocytes % 21.8% (15.0-51.0) Monocytes % 12.4% (0.0-11.0) Eosinophils % 1.8% (0.0-7.0) Basophils % 0.3% (0.0-2.0) Nucleated Red Blood Cells % 0.0/100WBC (0.0-0.0) Neutrophils # 9.610^3/ul (1.6-7.5) Lymphocytes # 3.310^3/ul (0.8-2.9) Monocytes # 1.910^3/ul (0.3-0.9) Eosinophils # 0.310^3/ul (0.0-0.5) Basophils # 0.110^3/ul (0.0-0.1) Nucleated Red Blood Cells # 0.010^3/ul (0.0-0.0) Prothrombin Time 16.0Sec (12.2-14.2) Prothrombin Time Ratio 1.3 INR International Normalized Ratio 1.27 Activated Partial Thromboplast Time 65.9Sec (25.0-35.0) Sodium Level 143mmol/L (135-144) Potassium Level 3.9mmol/L (3.5-5.1) Chloride Level 103mmol/L (97-110) Carbon Dioxide Level 34mmol/L (21-31) Anion Gap 10 (8-16) Blood Urea Nitrogen 17mg/dl (7-20) Creatinine 0.72mg/dl (0.44-1.00) Glucose Level 104mg/dl (70-220) Calcium Level 8.3mg/dl (8.4-10.2) Phosphorus Level 2.1mg/dl (2.5-4.9) Magnesium Level 2.3mg/dl (1.7-2.5) Total Bilirubin 1.1mg/dl (0.2-1.3) Direct Bilirubin 0.00mg/dl (0.00-0.20) Indirect Bilirubin 1.1mg/dl (0-1.1) Aspartate Amino Transf (AST/SGOT) 22IU/L (15-46) Alanine Aminotransferase (ALT/SGPT) 31IU/L (13-69) Alkaline Phosphatase 66IU/L (42-121) B-Type Natriuretic Peptide 299PG/ML (0-450) Total Protein 6.0g/dl (6.1-8.1) Albumin 3.0g/dl (3.3-4.9) Globulin 3.00g/dl (1.3-3.2) Albumin/Globulin Ratio 1.00 ELEAZAR JONES M.D. Jan 08, 2017 16:11
--- NOTE | 2017-01-08 16:11 | DS ---
Date/Time of Note Date/Time of Note DATE: 01/08/17 TIME: 16:09 Discharge Summary Admission/Discharge Info Admit Date/Time Jan 05, 2017 at 08:01 Discharge Date/Time Patient Condition: Good Hospital Course Updated Clinical Summary: The patient is a very pleasant 76-year-old lady well known to me from prior encounters in 2013 that were for recurrent colon cancer. She underwent a laparoscopic hand-assisted distal colectomy with splenectomy for idiopathic thrombocytopenic purpura on 11/25/2013 for a final pathology of a T2 N0 M0 with 0/32 lymph node positive disease who presented with bulge in the lower abdominal area concerning for an incisional hernia. S/p abd/pelvis CT showing large 9-10 cm abdominal wall hernia. S/p surveillance colonoscopy May [address] scan dated 12/05/2016 showed presence of previously known large midline infraumbilical incisional hernia containing small bowel and no new findings. S/p complex repair of ventral incisional hernia with preperitoneal mesh as outlined below. For a detailed report, please see my op note from same date. Post op, patient did very well without any evidence for major post-operative complication or wound problems. By the time of discharge, patient was tolerating a regular diet, had adequate pain control on oral pain medications, had shown return of bowel activity and was clinically stable. Surgical drain d/c'd prior to discharge without difficulty. She is therefore being discharged today. In addition to her home meds, I wrote her for: 1. [place] (5/325) 40 tabs and no refill 2. Colace 25 and 2 3. Dulcolax 10 and 3 Comorbidities: 1. Ventral incisional hernia. S/p Complex repair of ventral incisional hernia with preperitoneal mesh (composite Ventralight ST 20.3 cm x 25.4cm cut to size; also used Acell 6 layer 7 x 5 cm mesh cut to size to reapproximate the upper midline posterior rectus sheath over exposed bowel), right rectus myocutaneous flap (CPT 14135), left rectus myocutaneous flap (CPT 93275), implantation of mesh (CPT 42219), lysis of adhesions (60 mi 6. Nutes) and therapeutic injection of subcutaneous Marcaine (CPT 09649) at [facility] 01/05/17 2. History of colon cancer, initially diagnosed in [place] December 2011, status post resection followed by 4 cycles of 5-FU that were completed in July 2012. 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 Status post resection of descending colon in November 2012 followed by treatment with Xeloda. Status post above-mentioned resection in 2013, treated with modified FOLFOX therapy (6 ) x12 cycles with most recent CT negative as of November 2014. 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 CT scan dated 12/05/2016 showed presence of previously known large midline infraumbilical incisional hernia containing small bowel and no new findings. 3. Idiopathic thrombocytopenic purpura status post splenectomy during colon resection in 2013. 4. Gastroesophageal reflux disease. 5. Prior left lower extremity deep venous thrombosis. 6. Probable history of uterine cancer. 7. Prior hysterectomy and bilateral salpingo-oophorectomy. 8. History of osteoporosis. 9. History of renal stones. 10. Status post 3 colon resections as above, 2011, 2012 and 2013. 11. Status post splenectomy during colon resection in 2013. 12. Status post hysterectomy and bilateral salpingo-oophorectomy. 13. Status post colonoscopy 06/06/16: One 3 mm polyp at hepatic flexure removed ; patent end-end colo-colonic anastomosis, healthy appearing; non-bleeding external hemorrhoids 14. Significant history of colon and other malignancies in the family; patient' s daughter had to undergo proctocolectomy (info came to light for me 11/23/16 during office visit) 15. Hypertension. Other notes (not the signer's) 1. Ventral hernia status post repair Pain control Follow-up in surgery recommendations, possible DC in 1-2 days Monitor for bowel movements Ambulation 2. Hypertension Resume home Norvasc 3. History of colon cancer No acute issues 4. History of ITP status post spinal megaly No acute issues Prophylaxis: Lovenox Home Meds Reported Medications Amlodipine Besylate* (Norvasc*) 5 Mg Tablet, 5 MG PO DAILY, TAB 01/05/17 Omeprazole* (Omeprazole*) 40 Mg Capsule.dr, 40 MG PO DAILY, #30 CAP 02/01/16 Discontinued Reported Medications Amlodipine Besylate* (Amlodipine Besylate*) 10 Mg Tablet, 10 MG PO DAILY, #30 TAB 02/01/16 Primary Care Provider Pearl Pan MD Pending Labs Laboratory Tests Test 01/08/17 04:39 White Blood Count 15.210^3/ul (4.8-10.8) Red Blood Count 4.2510^6/ul (4.20-5.40) Hemoglobin 12.1g/dl (12.0-16.0) Hematocrit 37.8% (37.0-47.0) Mean Corpuscular Volume 88.9fl (82.0-101.0) Mean Corpuscular Hemoglobin 28.5pg (29.0-33.0) Mean Corpuscular Hemoglobin Concent 32.0g/dl (32.0-37.0) Red Cell Distribution Width 14.4% (11.5-14.5) Platelet Count 90845^3/UL (140-415) Mean Platelet Volume 11.1fl (7.4-10.4) Neutrophils % 63.2% (39.0-77.0) Lymphocytes % 21.8% (15.0-51.0) Monocytes % 12.4% (0.0-11.0) Eosinophils % 1.8% (0.0-7.0) Basophils % 0.3% (0.0-2.0) Nucleated Red Blood Cells % 0.0/100WBC (0.0-0.0) Neutrophils # 9.610^3/ul (1.6-7.5) Lymphocytes # 3.310^3/ul (0.8-2.9) Monocytes # 1.910^3/ul (0.3-0.9) Eosinophils # 0.310^3/ul (0.0-0.5) Basophils # 0.110^3/ul (0.0-0.1) Nucleated Red Blood Cells # 0.010^3/ul (0.0-0.0) Prothrombin Time 16.0Sec (12.2-14.2) Prothrombin Time Ratio 1.3 INR International Normalized Ratio 1.27 Activated Partial Thromboplast Time 65.9Sec (25.0-35.0) Sodium Level 143mmol/L (135-144) Potassium Level 3.9mmol/L (3.5-5.1) Chloride Level 103mmol/L (97-110) Carbon Dioxide Level 34mmol/L (21-31) Anion Gap 10 (8-16) Blood Urea Nitrogen 17mg/dl (7-20) Creatinine 0.72mg/dl (0.44-1.00) Glucose Level 104mg/dl (70-220) Calcium Level 8.3mg/dl (8.4-10.2) Phosphorus Level 2.1mg/dl (2.5-4.9) Magnesium Level 2.3mg/dl (1.7-2.5) Total Bilirubin 1.1mg/dl (0.2-1.3) Direct Bilirubin 0.00mg/dl (0.00-0.20) Indirect Bilirubin 1.1mg/dl (0-1.1) Aspartate Amino Transf (AST/SGOT) 22IU/L (15-46) Alanine Aminotransferase (ALT/SGPT) 31IU/L (13-69) Alkaline Phosphatase 66IU/L (42-121) B-Type Natriuretic Peptide 299PG/ML (0-450) Total Protein 6.0g/dl (6.1-8.1) Albumin 3.0g/dl (3.3-4.9) Globulin 3.00g/dl (1.3-3.2) Albumin/Globulin Ratio 1.00 ELEAZAR JONES M.D. Jan 08, 2017 16:11
--- NOTE | 2017-01-08 16:12 | PDOCDIS ---
Discharge Instructions CONDITION Patient Condition: Good HOME CARE INSTRUCTIONS: Diet Instructions: RegularSpecial Diet: REGULAR ACTIVITY: Activity Restrictions: Slowly Increase Activity Rest between Activity Avoid heavy lifting Do not operate Machinery Avoid Heavy Housework Bathing Restrictions: Sponge Bath OTHER ORDERS: Other Orders: Please call [phone] if any of fever, nausea, vomiting, discharge from wound , wound redness, increase or sudden pain, blood in stool or vomit, or any other unusual signs or symptoms. Also, please call the same number in a few days to schedule an appointment for your follow up visit. Patient may remove dressings tomorrow. Showers OK starting tomorrow. No swimming , hot tub or bath for 2 weeks. No lifting more than 25 lbs for 8 weeks. ELEAZAR JONES M.D. Jan 08, 2017 16:12
--- NOTE | 2017-01-08 16:12 | PDOCDIS ---
Discharge Instructions CONDITION Patient Condition: Good HOME CARE INSTRUCTIONS: Diet Instructions: RegularSpecial Diet: REGULAR ACTIVITY: Activity Restrictions: Slowly Increase Activity Rest between Activity Avoid heavy lifting Do not operate Machinery Avoid Heavy Housework Bathing Restrictions: Sponge Bath OTHER ORDERS: Other Orders: Please call [phone] if any of fever, nausea, vomiting, discharge from wound , wound redness, increase or sudden pain, blood in stool or vomit, or any other unusual signs or symptoms. Also, please call the same number in a few days to schedule an appointment for your follow up visit. Patient may remove dressings tomorrow. Showers [place] starting tomorrow. No swimming , hot tub or bath for 2 weeks. No lifting more than 25 lbs for 8 weeks. ELEAZAR JONES M.D. Jan 08, 2017 16:12
--- NOTE | 2017-01-08 16:12 | PDOCDIS ---
Discharge Instructions CONDITION Patient Condition: Good HOME CARE INSTRUCTIONS: Diet Instructions: RegularSpecial Diet: REGULAR ACTIVITY: Activity Restrictions: Slowly Increase Activity Rest between Activity Avoid heavy lifting Do not operate Machinery Avoid Heavy Housework Bathing Restrictions: Sponge Bath OTHER ORDERS: Other Orders: Please call [phone] if any of fever, nausea, vomiting, discharge from wound , wound redness, increase or sudden pain, blood in stool or vomit, or any other unusual signs or symptoms. Also, please call the same number in a few days to schedule an appointment for your follow up visit. Patient may remove dressings tomorrow. Showers [place] starting tomorrow. No swimming , hot tub or bath for 2 weeks. No lifting more than 25 lbs for 8 weeks. ELEAZAR JONES M.D. Jan 08, 2017 16:12
[2017-01-08] MEDS ORDERED: DOCU-216 PO (16:13)
[2017-01-08] MEDS ORDERED: BISA10SU75 PR (16:13)
[2017-01-08] MEDS ORDERED: HYDR-3498 PO (16:13)
[2017-01-08] MEDS ORDERED: POTASSIUM PHOSPHATE 20 MEQ in SOD CHLORIDE 0.9% 250 ML IVPB ONE (17:00)
--- NOTE | 2017-01-08 19:21 | PN ---
Date/Time of Note Date/Time of Note DATE: 01/08/17 TIME: 19:20 Assessment/Plan VTE Prophylaxis VTE Prophylaxis Intervention: LMWH Lines/Catheters IV C[facility] Type [facility] Sal[place] Lock Urinary Cath still in place: No Assessment/Plan Chief Complaint/Hosp Course 1. Ventral hernia status post repair Pain control Surgery to DC patient today 2. Hypertension Continue home Norvasc 3. History of colon cancer No acute issues 4. History of ITP status post spinal megaly No acute issues Prophylaxis: Lovenox Problems: Subjective 24 Hr Interval Summary Constitutional: no complaints Exam/Review of Systems Vital Signs Vitals Vital Signs Date Time Temp Pulse Resp B/P Pulse Ox O2 Delivery O2 Flow Rate FiO2 01/08/17 14:00 98.7 99 16 118/58 92 01/08/17 05:48 Nasal Cannula 2.0 Intake and Output 01/07/17 01/07/17 01/08/17 15:00 23:00 07:00 Intake Total 700 ml 950 ml Output Total 855 ml 900 ml Balance -155 ml 50 ml Exam Constitutional: alert, oriented Respiratory: clear to auscultation Cardiovascular: regular rate and rhythm Gastrointestinal: soft, No distended Musculoskeletal: nl extremities to inspection Results Result Diagram: 01/08/17 0439 01/08/17 0439 Results 24 hrs Laboratory Tests Test 01/08/17 04:39 White Blood Count 15.2 #H Red Blood Count 4.25 Hemoglobin 12.1 Hematocrit 37.8 Mean Corpuscular Volume 88.9 Mean Corpuscular Hemoglobin 28.5 L Mean Corpuscular Hemoglobin Concent 32.0 Red Cell Distribution Width 14.4 Platelet Count 197 # Mean Platelet Volume 11.1 H Neutrophils % 63.2 Lymphocytes % 21.8 Monocytes % 12.4 H Eosinophils % 1.8 Basophils % 0.3 Nucleated Red Blood Cells % 0.0 Neutrophils # 9.6 H Lymphocytes # 3.3 H Monocytes # 1.9 H Eosinophils # 0.3 Basophils # 0.1 Nucleated Red Blood Cells # 0.0 Prothrombin Time 16.0 H Prothrombin Time Ratio 1.3 INR International Normalized Ratio 1.27 Activated Partial Thromboplast Time 65.9 H Sodium Level 143 Potassium Level 3.9 Chloride Level 103 Carbon Dioxide Level 34 H Anion Gap 10 Blood Urea Nitrogen 17 Creatinine 0.72 Glucose Level 104 Calcium Level 8.3 L Phosphorus Level 2.1 L Magnesium Level 2.3 Total Bilirubin 1.1 Direct Bilirubin 0.00 Indirect Bilirubin 1.1 Aspartate Amino Transf (AST/SGOT) 22 Alanine Aminotransferase (ALT/SGPT) 31 Alkaline Phosphatase 66 B-Type Natriuretic Peptide 299 Total Protein 6.0 L Albumin 3.0 L Globulin 3.00 Albumin/Globulin Ratio 1.00 Medications Medications Current Medications Acetaminophen/ Hydrocodone Bitart ([place] (5/325)) 1 tab Q4H PRN PO PAIN LEVEL 4 -7 Last administered on 01/06/17 11:50; Admin Dose 1 TAB; Start 01/05/17 at 15:30; Status Future hold Acetaminophen/ Hydrocodone Bitart ([place] (5/325)) 2 tab Q4H PRN PO PAIN LEVEL 7 -10; Start 01/05/17 at 15:30; Status Future hold Hydromorphone HCl (Dilaudid) 0.5 mg Q2H PRN IV PAIN; Start 01/05/17 at 15:30 Hydromorphone HCl (Dilaudid) 1 mg Q2H PRN IV PAIN; Start 01/05/17 at 15:30 Docusate Sodium (Colace) 100 mg BID PRN PO CONSTIPATION Last administered on 10:30; Admin Dose 100 MG; Start 01/05/17 at 15:30 Bisacodyl (Dulcolax Supp) 10 mg BID PRN MD CONSTIPATION Last administered on 17:27; Admin Dose 10 MG; Start 01/05/17 at 15:30 Sodium Biphosphate/ Sodium Phosphate (Fleet Enema) 133 ml BID PRN MD CONSTIPATION; Start 01/05/17 at 15:30 Enoxaparin Sodium (Lovenox) 40 mg DAILY SC Last administered on 01/08/17 08: 50; Admin Dose 40 MG; Start 01/06/17 at 09:00 Hydralazine HCl (Apresoline) 10 mg Q4H PRN IV SBP > 160; Start 01/06/17 at 05: 00 Famotidine (Pepcid) 40 mg HS PO Last administered on 01/07/17 21:44; Admin Dose 40 MG; Start 01/06/17 at 21:00 Ciprofloxacin (Cipro) 250 mg BID@06,18 PO Last administered on 01/08/17 17:27 ; Admin Dose 250 MG; Start 01/07/17 at 10:00 Amlodipine Besylate (Norvasc) 5 mg DAILY PO Last administered on 01/08/17 08: 49; Admin Dose 5 MG; Start 01/07/17 at 12:15 Ketorolac Tromethamine (Toradol) 30 mg Q6H PRN IV PAIN; Start 01/07/17 at 14: 30 Acetaminophen 650 mg 650 mg Q6H PRN PO PAIN AND OR ELEVATED TEMP Last administered on 01/07/17 21:44; Admin Dose 650 MG; Start 01/07/17 at 21:00 Potassium Phosphate/Sodium Chloride (K Phos (Meq)/NS) 254.5455 ml @ 63.636 m... ONCE ONCE IVPB Last administered on 01/08/17 17:27; Admin Dose 63.636 MLS/HR; Start 01/08/17 at 17:00; Stop 01/08/17 at 20:59 SHIRLEY HERNANDEZ Jan 08, 2017 19:21
[2017-01-08 20:48] VITALS: BP 133/70; RESP 18
[2017-01-08] MEDS: FAMOTIDINE 20 MG TAB PO SCH (21:40)
== END 2017-01-08 22:00 | disposition home or self-care (01) | DRG 337 ==
LOC: REC 08:01 → EDSTATUS 09:00 → MS1 18:45
PROVIDERS: ADMIT Transplant Surgery; ATTEND Transplant Surgery
PROC: 0DNW0ZZ Release Peritoneum, Open Approach (ICD-10-PCS; 2017-01-05)
PROC: 0KXK0ZZ Transfer Right Abdomen Muscle, Open Approach (ICD-10-PCS; 2017-01-05)
PROC: 0KXL0ZZ Transfer Left Abdomen Muscle, Open Approach (ICD-10-PCS; 2017-01-05)
PROC: 0WUF0JZ Supplement Abdominal Wall with Synthetic Substitute, Open Approach (ICD-10-PCS; principal; 2017-01-05 09:00)
DX: K43.2 Incisional hernia without obstruction or gangrene (principal); I10 Essential (primary) hypertension; M81.0 Age-related osteoporosis without current pathological fracture; K21.9 Gastro-esophageal reflux disease without esophagitis; K66.0 Peritoneal adhesions (postprocedural) (postinfection); Z85.038 Personal history of other malignant neoplasm of large intestine; Z85.42 Personal history of malignant neoplasm of other parts of uterus; Z86.718 Personal history of other venous thrombosis and embolism; Z90.710 Acquired absence of both cervix and uterus; Z90.81 Acquired absence of spleen
CPT/HCPCS: 80048; 80053; 81001; 83735; 83880; 84100; 85025; 85610; 85730; 88302; 88304; J1940; C1781; J0131; J0690; J1170; J1650; J1885; J2250; J2370; J2405; J2765; J2795; J3010; J3480; J7050; Q4166

== ENCOUNTER 2017-01-25 10:38 | Outpatient (CLI) | payer OTHER ==
[~2017-01-25] VITALS: Ht 154.9 cm; Wt 62.3 kg
[~2017-01-25 10:38] MED LIST changes: -AMLO-147 PO; +AMLO5TAB4 PO; +BISA10SU75 PR; -CEFAZOLIN 2 GM/50 ML (PMX) 50 ML IVPB SCH; +DOCU-216 PO; +HYDR-3498 PO
[2017-01-25 11:42] VITALS: Ht 154.9 cm; Wt 62.3 kg
[2017-01-25 11:46] VITALS: BP 150/70; PULSE 89; RESP 18
--- NOTE | 2017-01-25 12:09 | PN ---
Date/Time of Note Date/Time of Note DATE: 01/25/17 TIME: 12:00 Assessment/Plan Assessment/Plan Assessment/Plan [facility] Progress Note Date of Service: 01/25/2017 Location of Service: [facility] Today's Assessment & Plan: Overall stable and doing well. Abdomen remains benign. No indications of major postoperative complications or wound problems. No indication for acute surgical intervention. Discussed with patient and family and answered all questions. Patient and family appeared to understand and agreed with plans With above assessment, I've recommended the following for today: 1. F/u with PCP 2. F/u with us prn 3. Continue routine oncologic surveillance Thank you again for your great care of this very pleasant patient and wonderful family. If there are any questions, please feel free to call me at [phone]. Nature of presenting problem: High severity Please note that, given the multiple number of diagnoses or management options, the moderate amount and/or complexity of data needed to be reviewed, and moderate to high risk of complications and/or morbidity or mortality, this qualifies as moderate complexity type of decision-making. Disclaimers: 1. Inadvertent spelling and grammatical errors are likely due to electronic health record (EHR)/dictation software used and do not reflect on the quality of delivered patient care. 2. The electronic timestamp recorded on this note does not necessarily reflect the actual date and time of the visit or the service. 3. Portions of this note may have been created through electronic templates and computer algorithms that might bring in information either from the system or from other physicians and providers. Please note that such information may or may not contain errors, the occurrence of which are outside of my control. In general (but not always) this happens either in the beginning or at the end of the note. The portion of the note that I have created are generally done in 1 continuous block of text, flanked at the beginning and at the end by " ", and entered into one field in the EHR. 4. There may be other unanticipated errors in the note that are outside of my control. I can only attest to the portions of the note that I have created. Updated Clinical Summary: The patient is a very pleasant 76-year-old lady well known to me from prior encounters in 2013 that were for recurrent colon cancer. She underwent a laparoscopic hand-assisted distal colectomy with splenectomy for idiopathic thrombocytopenic purpura on 11/25/2013 for a final pathology of a T2 N0 M0 with 0/32 lymph node positive disease who presented with bulge in the lower abdominal area concerning for an incisional hernia. S/p abd/pelvis CT showing large 9-10 cm abdominal wall hernia. S/p surveillance colonoscopy May [address] scan dated 12/05/2016 showed presence of previously known large midline infraumbilical incisional hernia containing small bowel and no new findings. S/p Complex repair of ventral incisional hernia with preperitoneal mesh (composite Ventralight ST 20.3 cm x 25.4cm cut to size; also used Acell 6 layer 7 x 5 cm mesh cut to size to reapproximate the upper midline posterior rectus sheath over exposed bowel), right rectus myocutaneous flap ( CPT 02377), left rectus myocutaneous flap (CPT 46216), implantation of mesh ( CPT 55287), lysis of adhesions (60 mi 6. Nutes) and therapeutic injection of subcutaneous Marcaine (CPT 17326) at [facility] 01/05/17. Unremarkable recovery post op. D/c home 01/08/17. Comorbidities: 1. Ventral incisional hernia. S/p Complex repair of ventral incisional hernia with preperitoneal mesh (composite Ventralight ST 20.3 cm x 25.4cm cut to size; also used Acell 6 layer 7 x 5 cm mesh cut to size to reapproximate the upper midline posterior rectus sheath over exposed bowel), right rectus myocutaneous flap (CPT 06727), left rectus myocutaneous flap (CPT 61800), implantation of mesh (CPT 60075), lysis of adhesions (60 mi 6. Nutes) and therapeutic injection of subcutaneous Marcaine (CPT 48633) at [facility] 01/05/17 2. History of colon cancer, initially diagnosed in [place] December 2011, status post resection followed by 4 cycles of 5-FU that were completed in July 2012. 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 Status post resection of descending colon in November 2012 followed by treatment with Xeloda. Status post above-mentioned resection in 2013, treated with modified FOLFOX therapy (6 ) x12 cycles with most recent CT negative as of November 2014. 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 CT scan dated 12/05/2016 showed presence of previously known large midline infraumbilical incisional hernia containing small bowel and no new findings. 3. Idiopathic thrombocytopenic purpura status post splenectomy during colon resection in 2013. 4. Gastroesophageal reflux disease. 5. Prior left lower extremity deep venous thrombosis. 6. Probable history of uterine cancer. 7. Prior hysterectomy and bilateral salpingo-oophorectomy. 8. History of osteoporosis. 9. History of renal stones. 10. Status post 3 colon resections as above, 2011, 2012 and 2013. 11. Status post splenectomy during colon resection in 2013. 12. Status post hysterectomy and bilateral salpingo-oophorectomy. 13. Status post colonoscopy 06/06/16: One 3 mm polyp at hepatic flexure removed ; patent end-end colo-colonic anastomosis, healthy appearing; non-bleeding external hemorrhoids 14. Significant history of colon and other malignancies in the family; patient' s daughter had to undergo proctocolectomy (info came to light for me 11/23/16 during office visit) 15. Hypertension. Subjective: No major events or complaints since discharge; reports feeling well; no major abd pain and not taking any pain medications; no n/v/d; no sob or cp; bowel activity; + activity Objective: Vitals: See below Exam: GENERAL: On exam, the patient was laying in bed and appeared to be comfortable and in no acute distress. ABDOMEN: Soft, non-tender and nondistended. Incisions are clean, dry and intact without any evidence of obvious underlying erythema, edema, discharge, or hernia. [place] were d/c'd in the office. There are no peritoneal signs or guarding. SKIN: Skin appears to be pink and feels warm to touch. NEUROLOGIC: Patient is awake, alert, and follows commands appropriately. Exam/Review of Systems Vital Signs Vitals Vital Signs Date Time Temp Pulse Resp B/P Pulse Ox O2 Delivery O2 Flow Rate FiO2 01/25/17 11:46 98.4 89 18 150/70 95 Room Air ELEAZAR JONES M.D. Jan 25, 2017 12:09
== END 2017-01-25 17:00 | disposition home or self-care (01) ==
LOC: HPC 10:38
PROVIDERS: ATTEND Transplant Surgery
DX: K43.2 Incisional hernia without obstruction or gangrene (principal); D69.6 Thrombocytopenia, unspecified; M81.0 Age-related osteoporosis without current pathological fracture; Z90.710 Acquired absence of both cervix and uterus; Z87.442 Personal history of urinary calculi; Z85.038 Personal history of other malignant neoplasm of large intestine; Z90.81 Acquired absence of spleen
CPT/HCPCS: G0463